=== PATIENT | male | born 1955 | race Caucasian/White ===

== ENCOUNTER 2018-07-13 05:27 | Inpatient (IN) | payer BC ==
--- NOTE | 2018-06-30 10:13 | HP ---
HISTORY AND PHYSICAL: DATE OF OFFICE VISIT: 06/30/18 DATE OF SURGERY: 07/13/18 SURGEON: Aleksandra Rodgers MD* (dictated by ROSANNE Badillo). PROCEDURE: Right total knee arthroplasty. CHIEF COMPLAINT: Right knee pain. HISTORY OF PRESENT ILLNESS: Mr. Harley is a 62-year-old gentleman with continued complaints of right knee pain. He has failed conservative treatment and elected to proceed with a right total knee arthroplasty. PAST MEDICAL HISTORY: Sleep apnea. PAST SURGICAL HISTORY: Right knee arthroscopy, bilateral carpal tunnel release , ganglion cyst removal, and palate surgery for sleep apnea. CURRENT MEDICATIONS: None. ALLERGIES: None. FAMILY HISTORY: Cancer. SOCIAL HISTORY: A 62-year-old gentleman who lives with his . He smokes a pack and a quarter a day of cigarettes and some occasional marijuana and drinks 7 to 8 beers per week. REVIEW OF SYSTEMS: A complete 14-point review of systems was reviewed with the patient. It was all negative and noncontributory. He denies history of DVT, PE , hepatitis, HIV or anesthesia problems. PHYSICAL EXAMINATION GENERAL: He is well developed, well nourished, in no acute distress. VITAL SIGNS: He stands 5 feet 7 inches tall, weighs 280 pounds. His blood pressure is 148/80. His heart rate is 70. HEENT: Normocephalic, atraumatic. NECK: Supple. No palpable lymph nodes. PULMONARY: The lungs are clear to auscultation bilaterally. CARDIAC: Regular rate and rhythm. Strong S1, S2. ABDOMEN: Soft, nontender, nondistended. NEUROLOGIC: He is alert and oriented x3. MUSCULOSKELETAL: Right lower extremities: The skin is intact. There are no open wounds or abrasions. Some moderate effusion of the right knee. Some tenderness over the medial and lateral joint line. Range of motion is 10 to 120 degrees of flexion. He has 2+ dorsalis pedis pulse. He is able to dorsiflex and plantarflex and has intact sensation. ASSESSMENT AND PLAN: Mr. Harley is a 62-year-old gentleman with end-stage osteoarthritis of the right knee. He has failed conservative treatment and elected to proceed with the right total knee arthroplasty. The surgery is scheduled for 07/13/[address] Rodgers discussed the risks and benefits of the surgery at today's visit and all of his questions were answered. He will follow up with Dr. Rodgers in 2 weeks after the surgery. ROSANNE BADILLO [id number]/CPS #: [id number] MTDD
[~2018-07-13 05:27] MED LIST: Buffered Lidocaine 1% SYRIN* 1 ML/SYRINGE INTRADERM ONE; Lactated Ringers 1000 ML Bag* 1,000 ML IV SCH; Tranexamic Acid 1,000 MG in NS 0.9% 50 ML* (outpatient use) IV SCH
--- OUTSIDE RECORDS SUMMARY | 2018-07-13 05:31 | XMS REPORT | Continuity of Care Document ---
:1955 External Reference #:[id number] Author Name Timmy Gabriella Care Team Providers Name Role Phone Pepito Lo PA-C Primary Care Physician Unavailable Payers Date Identification Numbers Payment Provider Subscriber Effective: 2015 Policy Number: [id number] BS Chelo Harley PayID: [id number] [address] [address] [place] [address] Effective: 2013 Policy Number: [id number] BS [employer]ets Valencia Harley Expires: 2015 PayID: [id number] [address] [address] [place] [address] Advance Directives Description No Information Available Problems Date Description Provider Status Onset: 04/30/2015 Localized, primary osteoarthritis Aleksandra Rodgers M.D. Active Onset: 10/31/2016 Transient altered mental status Yuliana Ross M.D. 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 ETOH Use Currently consumes alcohol 12/week ETOH Use consumes 1-2 beers per day Tobacco Use Start: Unknown Patient is a current 1 PPD x 47 yrs smoker, smokes every day Recreational Drug Use Sporadically uses Marijuana Smoking Status Reviewed: 06/30/18 Patient is a current 1 PPD x 47 yrs smoker, smokes every day Exercise Type/Frequency Exercises rarely Allergies, Adverse Reactions, Alerts Description No Known Drug Allergies Medications Medication Date Status Form Strength Qnty SIG Indications Ordering Provider No Active Active Unknown Medications 016 Ultracet Hx Tablets 37.5-325mg 30tabs 1-2 tabs Sommer 016 - by mouth Nur, M.D. every 016 4-6 hours as needed pain No Active Hx Unknown Medications 014 - 016 No Active Hx Unknown Medications 014 - 014 Ibuprofen 00/00/0 Hx Unknown 000 - 014 Aspirin 00/00/0 Hx Unknown 000 - 014 Medications Administered in Office Medication Date Status Form Strength Qnty SIG Indications Ordering Provider Depomedrol Administered Injection Sommer 40MG 019 Aziza Nur Depomedrol Administered Injection Aleksandra 40MG 017 Aziza Rodgers Depomedrol Administered Injection Aleksandra 40MG 016 Aziza Rodgers Immunizations Description No Information Available Vital Signs Date Vital Result Comment 06/30/2018 8:50am Height 67 inches 5'7" Weight 280.00 lb Heart Rate 70 /min BP Systolic 148 mmHg BP Diastolic 80 mmHg Body Temperature 97.0 F BMI (Body Mass Index) 43.8 kg/m2 04/14/2018 10:41am Height 67 inches 5'7" Weight 280.00 lb Heart Rate 68 /min BP Systolic Sitting 154 mmHg BP Diastolic Sitting 92 mmHg Pain Level 6 BMI (Body Mass Index) 43.8 kg/m2 04/09/2018 12:00pm Height 67 inches 5'7" Weight 280.00 lb Heart Rate 80 /min BP Systolic 124 mmHg BP Diastolic 68 mmHg BMI (Body Mass Index) 43.8 kg/m2 10/31/2016 10:09am Height 67 inches 5'7" Weight 270.00 lb Heart Rate 70 /min BP Systolic Sitting 120 mmHg BP Diastolic Sitting 72 mmHg Respiratory Rate 20 /min Pain Level 0 O2 % BldC Oximetry 95 % BMI (Body Mass Index) 42.3 kg/m2 2016 10:25am Height 67 inches 5'7" Weight 260.00 lb Heart Rate 63 /min BP Systolic 136 mmHg BP Diastolic 87 mmHg Pain Level 7 BMI (Body Mass Index) 40.7 kg/m2 09/13/2015 8:41am Height 67 inches 5'7" Weight 250.00 lb Body Temperature 97.2 F Pain Level 0 BMI (Body Mass Index) 39.2 kg/m2 08/27/2015 8:16am Height 67 inches 5'7" Weight 250.00 lb Body Temperature 97.6 F Pain Level 1 BMI (Body Mass Index) 39.2 kg/m2 08/08/2015 9:23am Height 67 inches 5'7" Weight 250.00 lb Heart Rate 73 /min BP Systolic 123 mmHg BP Diastolic 79 mmHg BMI (Body Mass Index) 39.2 kg/m2 06/25/2015 2:49pm Height 67 inches 5'7" Weight 250.00 lb BMI (Body Mass Index) 39.2 kg/m2 06/11/2015 1:45pm Height 67 inches 5'7" Weight 250.00 lb BMI (Body Mass Index) 39.2 kg/m2 04/30/2015 2:16pm Height 67 inches 5'7" Weight 250.00 lb Heart Rate 75 /min BP Systolic 155 mmHg BP Diastolic 81 mmHg BMI (Body Mass Index) 39.2 kg/m2 07/11/2013 10:34am Height 67 inches 5'7" Weight 250.00 lb Heart Rate 88 /min BMI (Body Mass Index) 39.2 kg/m2 06/10/2013 9:46am Height 67 inches 5'7" Weight 250.00 lb Heart Rate 76 /min BP Systolic 138 mmHg BP Diastolic 87 mmHg BMI (Body Mass Index) 39.2 kg/m2 05/23/2013 9:14am BP Systolic 138 mmHg BP Diastolic 88 mmHg 04/28/2013 11:05am Height 67 inches 5'7" Weight 250.00 lb Heart Rate 67 /min BP Systolic 138 mmHg BP Diastolic 82 mmHg BMI (Body Mass Index) 39.2 kg/m2 Results Test Date Facility Test Result H/L Range Note Laboratory test 08/17/2015 [facility] Surgical SEE RESULT 1 , [address] Pathology [place], [place] [id number] [phone] 1 [id number] 2 SEE RESULT BELOW Name: JOSE ALBERTO HARLEY : [address]: Sommer Nur MD Acct: [id number] Unit: [id number] AGE: 60 Location: [facility] Re08/17/15 SEX: M Status: REG SD SPEC: [id number] PRINCE: 08/17/15 [facility] DR: Sommer Nur MD REQ: [id number] RECD: 08/17/15-1138 STATUS: SOUT _ ORDERED: LEVEL III, LEVEL IV COMMENTS: [id number] FINAL DIAGNOSIS 1. Soft tissue, right thumb, excision: -- Ganglion cyst 2. Soft tissue, right wrist, excision: -- Ganglion cyst PRE-OPERATIVE DIAGNOSIS Ganglion right wrist, mass right thumb. GROSS DESCRIPTION 1. The specimen is received in formalin labeled, Right Thumb Mass, and consists of a 2.0 x 0.8 x 0.2 cm white rubbery to fibrous tissue fragment with adherent muscle and adipose tissue. The specimen is longitudinally bisected and entirely submitted in one cassette. 2. The specimen is received in formalin labeled, Right Wrist Ganglion, and consists of a 2.0 x 1.2 x up to 0.6 cm brito-pink rubbery to fibrous tissue fragment, which is trisected and entirely submitted in one cassette. Signed (signature on file) Amador White MD [id number] END OF REPORT * ML=Testing performed at Main Lab DEPARTMENT OF PATHOLOGY, [address] [place] [address] Amador White M.D. Director [facility] # [id number] Procedures Date Code Description Status 04/14/2018 47063 Inject Tendon Sheath Or Ligament Aponeurosis Eg Plantar Completed Fascia 11/04/2016 47580 EEG Recording Awake & Asleep Completed 2016 34894 Inject/Drain Joint/Bursa Major W/O US Completed 08/17/2015 10027 Excision Tendon Sheath Ganglion /Or Joint Capsule Hand Or Completed Finger 08/17/2015 21078 Excision Ganglion Wrist/ Dorsal Or Volar; Primary Completed 08/17/2015 02287 Excision Ganglion Wrist/ Dorsal Or Volar; Primary Completed 06/11/2015 58765 Inject/Drain Joint/Bursa Major W/O US Completed 05/31/2013 14867 Arthroscopy,Knee,Meniscectomy Medial Or Lateral Completed 05/31/2013 23848 Arthroscopy,Knee,Meniscectomy Medial Or Lateral Completed 04/28/2013 60151 Xray Knee 3 Views Completed Encounters Type Date Location Provider Dx Diagnosis Office Visit 04/14/2018 Orthopedic Sommer Nur M65.311 Trigger thumb, 10:30a [facility] right thumb Office Visit 04/09/2018 Orthopedic Aleksandra Rodgers, M25.561 Pain in right 11:15a [facility] knee M25.461 Effusion, right knee M17.11 Unilateral primary osteoarthritis, right knee Office Visit 10/31/2016 [facility]/V[facility] Celestin R40.4 Transient 10:15a [facility] Aziza Ross alteration of Street Contractor awareness Office Visit 08/08/2015 [facility] Sommer M67.431 Ganglion, right 8:30a Of Vikci Nur M.D. wrist M67.441 Ganglion, right hand Office Visit 06/25/2015 Orthopedic Aleksandra M17.11 Unilateral primary 2:30p [facility] Rodgers osteoarthritis, right C.MTeena knee Office Visit 06/11/2015 Orthopedic Aleksandra M25.561 Pain in right knee 1:45p [facility] Rodgers C.[facility].ATommie M17.11 Unilateral primary osteoarthritis, right knee Office Visit 04/30/2015 Orthopedic Aleksandra M17.11 Unilateral primary 2:15p [facility] Rodgers osteoarthritis, right [facility]. knee M25.461 Effusion, right knee M25.561 Pain in right knee Office Visit 04/28/2013 10:45a Orthopedic Aleksandra Rodgers, 719.06 Effusion [facility] Lower Leg 844.8 Sprains & Strains Knee & Leg Other Spec Sites Plan of Treatment Future Appointment(s):07/23/2018 8:45 am - Aleksandra Rodgers M.D. at [facility]07/13/2018 8:30 am - TOBY Mayorga at [facility]07/13/2018 8:30 am - ROSANNE [place] at [facility]07/13/2018 8:30 am - Aleksandra Rodgers M.D. at [facility]06/30/2018 - Aleksandra Rodgers M.D.M17.11 Unilateral primary osteoarthritis, right kneeFollow up:Follow up: 2 weeks after ezhvihoX92.461 Effusion, right kneeM25.561 Pain in right knee
--- OUTSIDE RECORDS SUMMARY | 2018-07-13 05:32 | XMS REPORT | Continuity of Care Document ---
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 Payers Date Identification Numbers Payment Provider Subscriber Effective: 2015 Policy Number: [id number] [facility] Harley PayID: [id number] [address] [address] [place] [address] Advance Directives Description No Information Available Problems Date Description Provider Status Onset: 05/29/2011 Mixed hyperlipidemia Sdira Garcia, RN MS Active NATIONAL RECRUITER Onset: 05/26/2013 Morbid obesity Melva Oliver MD Active Onset: 05/26/2013 Obstructive sleep apnea syndrome Melva Oliver MD Active Onset: 05/27/2013 Tobacco user Melva Oliver MD Active Onset: 12/31/2015 Laboratory test result abnormal Pepito Lo PA Active Note: hsCRP--- >6 Onset: 12/31/2015 Prostate specific antigen abnormal Pepito Lo PA Active Note: >4 Family History Date Family Member(s) Observation Comments Father Unknown Parents when patient was 6 months old Mother Alive And Well Number of Children None Number of Siblings Siblings: 4 All 1/2 siblings (same father). 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 Occupation Retired July 06, 2015 Tobacco Use Start: Unknown current cigarette smoker 1 pack daily X40 years ETOH Use Currently consumes alcohol Occas, beer, wine and alcohol Tobacco Use Start: Unknown Heavy tobacco smoker (more than 10 cigarettes/day) Smoking Status Reviewed: 06/16/18 Heavy tobacco smoker (more than 10 cigarettes/day) Allergies, Adverse Reactions, Alerts Description No Known Drug Allergies Medications Medication Date Status Form Strength Qnty SIG Indications Ordering Provider Nicotine 06/16/ Active Patches 21mg/24HR 84uni 1 patch F17.210 [facility], 2018 24HR ts daily Cynthia Joshua MD Shingrix 08/03/ Active Suspension 50mcg 1unit 1 Z00.01 [facility], 2017 Rec s injection Cynthia yaron Joshua MD directed Massage Therapy 02/03/ Active [facility] Cynthia florencia Joshua MD Azithromycin 05/13/ Hx Tablets 500mg 3tabs 1 by mouth J01.90 [facility], 2016 - every day Cynthia 05/16/ MD Tres 2016 Hydrocodone 05/13/ Hx Syrup 5-1.5mg/5M 200ml 1 tsp q J01.90 [facility] Bitartrate/Domenica 2017 - L 4-6hrs prn Cynthia tropine 05/20/ MD Tres Methylbromide 2016 No Active 01/27/ Hx Unknown Medications 2015 - 2015 Cephalexin 11/27/ Hx Tablets 500mg 30tab 1 by mouth S02.5xxB Jose, 2016 - s Three Sidra 01/27/ times a C, RN MS 2015 day NATIONAL RECRUITER Tamsulosin HCL 01/01/ Hx Capsules 0.4mg 30cap 1 by mouth N20.0 Olivier, 2014 - s every day Cynthia 11/27/ MD Tres 2016 Ondansetron 01/01/ Hx Tablets 4mg 30tab 1 by mouth N20.0 Olivier, 2015 - Dispers s twice a Cynthia 11/27/ day as MD Tres 2016 needed nausea No Active 11/27/ Hx Unknown Medications 2014 - 2014 Zithromax Z-Florentin 03/24/ Hx Tablets 250mg 1tabs take as Nisha 2011 - directed Last 01/03/ 2013 Keflex 07/08/ Hx Capsules 500mg 20cap 1 po qid 706.2 Nisha 2011 - s Last 03/24/ 2011 Amoxicillin 05/29/ Hx Tablets 875mg 28tab 1 po bid 461.0 Jose 2011 - s Sidra 04/04/ C, RN MS 2012 NATIONAL RECRUITER Hycotuss 05/29/ Hx Liquid 100mg;5mg/ 120ml 1 tsp ac 461.0 Jose, Expectorant 2011 - 5ML and hs Sidra 05/29/ C, RN MS 2011 NATIONAL RECRUITER Combivent 05/29/ Hx Aerosol 18-103mcg/ 1unit 2 puffs 461.0 Nisha, 2011 - Act s tid for Last, 05/26/ duration 2013 of cough Cheratussin ac 05/29/ Hx Syrup 100-10mg/5 120un 1 tsp ac 461.0 Jose, 2011 - ML its and hs Sidra 06/07/ C, RN MS 2011 NATIONAL RECRUITER Massage Therapy 10/01/ Hx DX: Degen Monthly as 715.09 Nisha, 2009 - Arthritis a medical Last, 11/27/ necessity 2015 Simvastatin 02/10/ Hx Tablets 20mg 30tab 1 PO qd 272.2 Nisha, 2007 - s Last, 10/01/ 2009 Chantix Starter 02/08/ Hx #1Pack 1unit as 305.1 Trabariel, Pack 2007 - s directed Last, 08/26/ 2007 Chantix 02/08/ Hx Tablets 1mg 60tab 1 bid with 305.1 Trabariel, 2006 - s increased Last, 01/03/ fluids 2013 Massage Therapy Hx DX: Degen Rx: 715.09 Nisha, 2005 - Arthritis Monthly Last, 03/21/ 2005 Motrin 02/04/ Hx Tablets 800mg 100ta 1 po tid 715.09 Nisha, 2005 - bs with food Last, 11/27/ prn pain 2014 724.5 Pravachol 07/09/2005 - Hx Tablets 40mg 30tabs 1 PO qd Nisha, 08/07/2006 MD Last Zithromax Z-Florentin 07/08/2004 - Hx Tablets 250mg 1Pak as Directed Dawson, 06/23/2005 Kendy N.PTommie Hycotuss 07/08/2004 - Hx Liquid 100mg;5mg 120ml 1 tsp ac and Dawson, Expectorant 05/29/2011 /5ML hs Knedy N.Ciara Nathaly D 07/08/2004 - Hx Tablets 60mg;120 20tabs 1 PO Q 12H [facility], 06/23/2005 mg Kendy, N.P. Medications Administered in Office Medication Date Status Form Strength Qnty SIG Indications Ordering Provider Depo Medrol 20 Administered Injection Trabout, MG 001 MD Last Immunizations CPT Code Status Date Vaccine Reaction Lot # [id number] Given 03/24/2012 Fluzone Trivalent Immunization [id number] Given 10/02/2005 Tetanus And Diptheria Toxoids For Adult NONE NOTED [id number] Use-preservative free Vital Signs Date Vital Result Comment 06/16/2018 9:22am Weight 286.12 lb Heart Rate 69 /min BP Systolic 119 mmHg BP Diastolic 64 mmHg Height 67 inches 5'7" BMI (Body Mass Index) 44.8 kg/m2 08/03/2017 10:32am Weight 279.00 lb Heart Rate 68 /min BP Systolic 123 mmHg BP Diastolic 74 mmHg Height 67 inches 5'7" BMI (Body Mass Index) 43.7 kg/m2 Urine Dipstick - Blood 1+ Urine Dipstick - Protein NEGATIVE Urine Dipstick - Glucose NEGATIVE Urine Dipstick - Leukocytes NEGATIVE 10/20/2016 10:22am Body Temperature 97.9 F Weight 268.12 lb Heart Rate 73 /min BP Systolic 120 mmHg BP Diastolic 73 mmHg Height 67 inches 5'7" BMI (Body Mass Index) 42.0 kg/m2 05/13/2016 9:26am Body Temperature 98.2 F Weight 272.25 lb Heart Rate 81 /min BP Systolic 133 mmHg BP Diastolic 76 mmHg Height 67 inches 5'7" BMI (Body Mass Index) 42.6 kg/m2 02/04/2016 11:54am Weight 269.25 lb Heart Rate 68 /min BP Systolic 126 mmHg BP Diastolic 80 mmHg Height 67 inches 5'7" BMI (Body Mass Index) 42.2 kg/m2 01/28/2016 11:10am Weight 268.00 lb Heart Rate 71 /min BP Systolic 127 mmHg BP Diastolic 71 mmHg Height 67 inches 5'7" BMI (Body Mass Index) 42.0 kg/m2 12/31/2015 8:23am Weight 270.25 lb Heart Rate 62 /min BP Systolic 140 mmHg BP Diastolic 75 mmHg Height 67 inches 5'7" BMI (Body Mass Index) 42.3 kg/m2 Urine Dipstick - Blood TRACE Urine Dipstick - Protein NEGATIVE Urine Dipstick - Glucose NEGATIVE Urine Dipstick - Leukocytes NEGATIVE 11/28/2015 1:33pm Body Temperature 98.2 F Weight 265.50 lb Heart Rate 78 /min BP Systolic 118 mmHg BP Diastolic 70 mmHg Height 67 inches 5'7" BMI (Body Mass Index) 41.6 kg/m2 01/01/2015 1:20pm Weight 261.00 lb Heart Rate 68 /min BP Systolic 118 mmHg BP Diastolic 68 mmHg Height 67 inches 5'7" BMI (Body Mass Index) 40.9 kg/m2 11/27/2014 9:22am Weight 258.25 lb Heart Rate 72 /min BP Systolic 127 mmHg BP Diastolic 72 mmHg Height 67 inches 5'7" BMI (Body Mass Index) 40.4 kg/m2 05/26/2013 9:41am Weight 270.00 lb Heart Rate 73 /min BP Systolic 150 mmHg BP Diastolic 89 mmHg Height 67 inches 5'7" BMI (Body Mass Index) 42.3 kg/m2 Urine Dipstick - Blood TRACE BLD And WBC Urine Dipstick - Protein NEGATIVE Urine Dipstick - Glucose NEGATIVE 01/03/2013 8:58am Weight 252.00 lb Heart Rate 68 /min BP Systolic 121 mmHg BP Diastolic 81 mmHg Height 67 inches 5'7" BMI (Body Mass Index) 39.5 kg/m2 Urine Dipstick - Blood TRACE WBC Urine Dipstick - Protein NEGATIVE Urine Dipstick - Glucose NEGATIVE 03/24/2012 1:32pm Weight 254.00 lb Heart Rate 71 /min BP Systolic 129 mmHg BP Diastolic 81 mmHg Height 67 inches 5'7" BMI (Body Mass Index) 39.8 kg/m2 Urine Dipstick - Blood NEGATIVE Urine Dipstick - Protein NEGATIVE Urine Dipstick - Glucose NEGATIVE 07/18/2011 10:59am Weight 252.00 lb Heart Rate 76 /min BP Systolic 109 mmHg BP Diastolic 72 mmHg 07/14/2011 11:16am Weight 256.00 lb Heart Rate 80 /min BP Systolic 121 mmHg BP Diastolic 78 mmHg 07/09/2011 1:24pm Weight 260.00 lb Heart Rate 82 /min BP Systolic 129 mmHg BP Diastolic 73 mmHg 07/07/2011 10:56am Weight 259.00 lb Heart Rate 72 /min BP Systolic 137 mmHg BP Diastolic 81 mmHg 05/29/2011 12:19pm Body Temperature 99.5 F Weight 244.00 lb Heart Rate 83 /min BP Systolic 107 mmHg BP Diastolic 67 mmHg 05/08/2010 2:56pm Weight 251.00 lb Heart Rate 75 /min BP Systolic 114 mmHg BP Diastolic 71 mmHg 05/01/2010 2:44pm Weight 253.00 lb Heart Rate 73 /min BP Systolic 115 mmHg BP Diastolic 71 mmHg 10/01/2009 11:09am Weight 243.00 lb Heart Rate 68 /min BP Systolic 125 mmHg BP Diastolic 79 mmHg Height 67 inches 5'7" BMI (Body Mass Index) 38.1 kg/m2 Urine Dipstick - Blood 1+ Urine Dipstick - Protein NEGATIVE Urine Dipstick - Glucose NEGATIVE 12/29/2008 11:10am Weight 247.00 lb Heart Rate 73 /min BP Systolic 119 mmHg BP Diastolic 75 mmHg 07/14/2008 10:08am Weight 254.00 lb Heart Rate 70 /min BP Systolic 109 mmHg BP Diastolic 69 mmHg Urine Dipstick - Blood 1+ Urine Dipstick - Protein NEGATIVE Urine Dipstick - Glucose NEGATIVE 01/31/2008 9:26am Weight 240.00 lb Heart Rate 79 /min BP Systolic 118 mmHg BP Diastolic 76 mmHg Height 5.7 inches 0'5.70" BMI (Body Mass Index) 5193.0 kg/m2 09/06/2007 11:56am Weight 238.00 lb Heart Rate 71 /min BP Systolic 112 mmHg BP Diastolic 71 mmHg Height 5.7 inches 0'5.70" BMI (Body Mass Index) 5149.7 kg/m2 08/27/2007 10:58am Weight 235.00 lb Heart Rate 72 /min BP Systolic 109 mmHg BP Diastolic 68 mmHg Height 5.7 inches 0'5.70" BMI (Body Mass Index) 5084.8 kg/m2 Urine Dipstick - Blood 1+ Urine Dipstick - Protein 1+ Urine Dipstick - Glucose NEGATIVE 02/08/2007 10:20am Weight 232.00 lb Heart Rate 75 /min BP Systolic 110 mmHg BP Diastolic 76 mmHg Height 5.7 inches 0'5.70" BMI (Body Mass Index) 5019.9 kg/m2 08/07/2006 11:07am Weight 236.00 lb Heart Rate 80 /min BP Systolic 130 mmHg BP Diastolic 68 mmHg Height 5.7 inches 0'5.70" BMI (Body Mass Index) 5106.4 kg/m2 Urine Dipstick - Blood 1+ Urine Dipstick - Protein NEGATIVE Urine Dipstick - Glucose NEGATIVE 02/04/2006 4:13pm Weight 240.00 lb Heart Rate 70 /min BP Systolic 142 mmHg BP Diastolic 66 mmHg Height 5.7 inches 0'5.70" BMI (Body Mass Index) 5193.0 kg/m2 10/15/2005 2:14pm Weight 238.00 lb Heart Rate 80 /min BP Systolic 102 mmHg BP Diastolic 58 mmHg Height 5.7 inches 0'5.70" BMI (Body Mass Index) 5149.7 kg/m2 10/02/2005 1:16pm Body Temperature 98.2 F Weight 233.00 lb Heart Rate 80 /min BP Systolic 120 mmHg BP Diastolic 66 mmHg Height 5.7 inches 0'5.70" BMI (Body Mass Index) 5041.5 kg/m2 07/09/2005 2:20pm Weight 235.00 lb Heart Rate 90 /min BP Systolic 106 mmHg BP Diastolic 60 mmHg Height 5.7 inches 0'5.70" BMI (Body Mass Index) 5084.8 kg/m2 06/23/2005 10:53am Weight 237.00 lb Heart Rate 84 /min BP Systolic 132 mmHg BP Diastolic 86 mmHg Height 5.7 inches 0'5.70" BMI (Body Mass Index) 5128.1 kg/m2 Results Test Date Facility Test Result H/L Range Note CBC with Auto Diff-fcmg 06/16/2018 [facility] 10.0 K/uL 4.1-11.0 RBC 5.21 M/uL 4.60-6.10 Hemoglobin 15.1 gm/dL 13.5-18.0 Hematocrit 46.2 % 41.0-53.0 MCV 88.7 fL 80.0-97.0 MCH 29.1 pg 27.0-32.0 MCHC 32.8 g/dL 32.0-36.0 RDW 14.3 % 11.5-14.5 PLT Count 227 K/ul 140-400 MPV 8.6 FL 7.1-10.7 Neutrophil 64.2 % 35.0-75.0 Lymphocyte 27.0 % 16.0-52.0 Monocyte 6.4 % 2.0-10.0 Eosinophil 1.8 % 0.0-5.0 Basophil 0.6 % 0.0-4.0 Abs Neutrophils 6.4 K/uL 2.1-8.0 Abs Lymphocytes 2.7 K/uL 0.8-5.5 Abs Monocytes 0.6 K/uL 0.1-1.0 Abs Eosinophils 0.2 K/uL 0.0-0.5 Abs Basophils 0.1 K/uL 0.0-0.3 Comprehensive Met Panel-[facility] 06/16/2018 [facility] Sodium 143 mmol/L 135- 146 1 Potassium 4.8 mmol/L 3.5-5.2 Chloride# 104 mmol/L 97-110 2 Carbon Dioxide 32 mmol/L 24-34 Glucose 131 mg/dL High 70-105 BUN 13 mg/dL 6-26 Creatinine 0.9 mg/dL 0.5-1.4 Calcium 9.5 mg/dL 8.5-10.2 Total Protein 6.5 g/dL 6.0-8.0 Albumin 4.1 g/dL 3.6-4.9 Globulin 2.4 g/dL 2.0-3.5 A/G Ratio 1.7 Ratio 1.0-2.2 Total Bilirubin 0.5 mg/dL 0.1-1.3 Alkaline Phosphatase 67 U/L 24-140 Alt 16 U/L 3-42 Ast 13 U/L 8-42 Anion Gap 7 mmol/L 5-15 3 [place] Egfr >60 >60 4 Non [place] Egfr >60 >60 5 Laboratory test finding 06/16/2018 [facility] Magnesium 2.2 mg/dL 1.5-2.7 Comprehensive Met Panel-[facility] 08/03/2017 [facility] Sodium 143 mmol/L 135- 146 6, 7 Potassium 4.7 mmol/L 3.5-5.2 Chloride# 103 mmol/L 97-110 8 Carbon Dioxide 30 mmol/L 24-34 Glucose 93 mg/dL 70-105 BUN 17 mg/dL 6-26 Creatinine 0.9 mg/dL 0.5-1.4 Calcium 9.6 mg/dL 8.5-10.2 Total Protein 6.5 g/dL 6.0-8.0 Albumin 4.3 g/dL 3.6-4.9 Globulin 2.2 g/dL 2.0-3.5 A/G Ratio 2.0 Ratio 1.0-2.2 Total Bilirubin 0.6 mg/dL 0.1-1.3 Alkaline Phosphatase 67 U/L 24-140 Alt 18 U/L 3-42 Ast 14 U/L 8-42 [place] Egfr >60 >60 9 Non [place] Egfr >60 >60 10 Anion Gap 10 mmol/L 5-15 11 Laboratory test finding 08/03/2017 [facility] CRP-High 9.80 mg/L 0.00-9.90 12 Lipid 08/03/2017 [facility] Cholesterol 212 mg/dL High 50-199 Triglycerides 147 mg/dL 30-200 HDL 48 mg/dL 13 Chol/ HDL Ratio 4.5 ratio 4.0-6.7 VLDL 29 mg/dL 2-29 LDL (Calc) 135 mg/dL High 2099 14 Laboratory test finding 08/03/2017 [facility] TSH 1.20 uIU/mL 0.35-4.94 PSA 3.230 ng/mL 0.000-4.000 15 Laboratory test 01/28/2016 [facility] SEE NOTE 16 finding Laboratory test 12/31/2015 [facility] PSA 4.080 ng/mL High 0.000-4. 17 finding 000 Lipid 12/31/2015 [facility] Cholesterol 206 mg/dL High 50-199 Triglycerides 196 mg/dL 30-200 HDL 42 mg/dL 18 Chol/ HDL Ratio 4.9 ratio 4.0-6.7 VLDL 39 mg/dL High 2-29 LDL (Calc) 125 mg/dL High -99 19 Hepatic Panel (LFT) 12/31/2015 [facility] Total Protein 6.9 g/dL 6.0-8.0 Albumin 4.1 g/dL 3.6-4.9 Total Bilirubin 0.6 mg/dL 0.1-1.3 Direct Bilirubin 0.1 mg/dL 0.0-0.4 Alkaline Phosphatase 61 U/L 24-140 Alt 17 U/L 3-42 Ast 13 U/L 8-42 Basic (BMP) 12/31/2015 [facility] Sodium 144 Results veri <SEE NOTE> High 134-142 20 mmol/L Potassium 5.2 mmol/L 3.5-5.2 Chloride 107 mmol/L 97-109 Carbon Dioxide 33 mmol/L 24-34 Glucose 119 mg/dL High 70-105 BUN 15 mg/dL 6-26 Creatinine 0.9 mg/dL 0.5-1.4 Calcium 9.5 mg/dL 8.5-10.2 Anion Gap 9 mmol/L 6-14 Non [place] Egfr >60 >60 21 [place] Egfr >60 >60 22 Laboratory test finding 12/31/2015 [facility] CRP-High 6.93 mg/L 0.00-9.90 23 Rout Urine W/ Micro -RL 01/01/2015 [facility] Color YELLOW Appearance CLEAR Spec Grav Urine 1.020 (1.003-1.030) PH Urine 5.5 (5.0-7.5) Leuk Esterase NEGATIVE (Neg) Nitrite Urine NEGATIVE (Neg) Protein Urine NEGATIVE (Neg) Glucose Urine NEGATIVE (Neg) Ketone Urine NEGATIVE (Neg) Urobilinogen 0.2 mg/dL (0-1.0) Bilirubin Urine NEGATIVE (Neg) Blood/HGB Urine NEGATIVE (Neg) Epithelial Cells NEGATIVE [HPF] (Neg) Hyaline Casts 0.3 [LPF] (0-5) Bacteria NEGATIVE [HPF] (Neg) Urine WBC 0.3 [HPF] (0-8) Urine RBC 1.4 [HPF] (0-3) 24 Laboratory test 01/01/2015 [facility] Urine Culture Microbiology res <SEE 25 finding NOTE> Laboratory test 11/27/2014 [facility] Urine Culture Microbiology res <SEE 26 finding NOTE> Urinalysis-RL 11/27/2014 [facility] Color YELLOW Appearance CLEAR Spec Grav Urine 1.026 (1.003-1.030) PH Urine 6.0 (5.0-7.5) Leuk Esterase NEGATIVE (Neg) Nitrite Urine NEGATIVE (Neg) Protein Urine NEGATIVE (Neg) Glucose Urine NEGATIVE (Neg) Ketone Urine NEGATIVE (Neg) Urobilinogen 0.2 mg/dL (0-1.0) Bilirubin Urine NEGATIVE (Neg) Blood/HGB Urine TRACE (Neg) Epithelial Cells NEGATIVE [HPF] (Neg) Hyaline Casts 2.4 [LPF] (0-5) Bacteria NEGATIVE [HPF] (Neg) Urine WBC 4.9 [HPF] (0-8) Urine RBC 2.9 [HPF] (0-3) 27 CBC With Auto Diff 11/27/2014 [facility] WBC 9.0 K/uL 4.1-11.0 RBC 5.13 M/uL 4.60-6.10 Hemoglobin 15.5 gm/dL 13.5-18.0 Hematocrit 46.8 % 41.0-53.0 MCV 91.2 fL 80.0-97.0 MCH 30.3 pg 27.0-32.0 MCHC 33.2 g/dL 32.0-36.0 RDW 13.4 % 11.5-14.5 PLT Count 238 K/ul 140-400 Neutrophil 57.6 % 35.0-75.0 Lymphocyte 31.6 % 16.0-52.0 Monocyte 7.5 % 2.0-10.0 Eosinophil 2.5 % 0.0-5.0 Basophil 0.8 % 0.0-4.0 Abs Neutrophils 5.2 K/uL 2.1-8.0 Abs Lymphocytes 2.8 K/uL 0.8-5.5 Abmon 0.7 K/uL 0.1-1.0 Abs Eosinophils 0.2 K/uL 0.0-0.5 Abs Basophils 0.1 K/uL 0.0-0.3 Comprehensive Metabolic (CMP) 11/27/2014 [facility] Sodium 138 mmol/L 134- 142 Potassium 4.5 mmol/L 3.5-5.2 Chloride 102 mmol/L 97-109 Carbon Dioxide 29 mmol/L 24-34 Glucose 106 mg/dL High 70-105 BUN 14 mg/dL 6-26 Creatinine 0.8 mg/dL 0.5-1.4 Calcium 8.9 mg/dL 8.5-10.2 Total Protein 6.7 g/dL 6.0-8.0 Albumin 4.1 g/dL 3.6-4.9 Globulin 2.6 g/dL 2.0-3.5 A/G Ratio 1.6 Ratio 1.0-2.2 Total Bilirubin 0.5 mg/dL 0.1-1.3 Alkaline Phosphatase 67 U/L 24-140 Alt 16 U/L 3-42 Ast 12 U/L 8-42 Anion Gap 12 mmol/L 6-14 [place] Egfr >60 >60 28 Non [place] Egfr >60 >60 29 Lipid 11/27/2014 [facility] Cholesterol 198 mg/dL 50-199 Triglycerides 190 mg/dL 30-200 HDL 38 mg/dL 29-71 30 Chol/ HDL Ratio 5.2 ratio 4.0-6.7 VLDL 38 mg/dL High 2-29 LDL (Calc) 122 mg/dL High 20-99 31 Laboratory test finding 11/27/2014 [facility] Vitamin B12 286 pg/mL 180- 914 TSH 0.94 uIU/mL 0.35-4.94 PSA 4.220 ng/mL High 0.000-4.000 32 Comprehensive Metabolic (CMP) 05/26/2013 [facility] Sodium 139 mmol/L 134- 142 33 Potassium 5.4 No visible h <SEE NOTE> mmol/L High 3.5-5.2 34 Chloride 103 mmol/L 97-109 Carbon Dioxide 30 mmol/L 24-34 Glucose 93 mg/dL 70-105 BUN 14 mg/dL 6-26 Creatinine 0.8 mg/dL 0.5-1.4 Calcium 9.2 mg/dL 8.5-10.2 Total Protein 6.7 g/dL 6.0-8.0 Albumin 4.2 g/dL 3.6-4.9 Globulin 2.5 g/dL 2.0-3.5 A/G Ratio 1.7 Ratio 1.0-2.2 Total Bilirubin 0.5 mg/dL 0.1-1.3 Alkaline Phosphatase 71 U/L 24-140 Alt 17 U/L 3-42 Ast 13 U/L 8-42 Anion Gap 11 mmol/L 6-14 [place] Egfr >60 >60 35 Non [place] Egfr >60 >60 36 CBC With Auto Diff 05/26/2013 [facility] WBC 8.7 K/uL 4.1-11.0 RBC 5.07 M/uL 4.60-6.10 Hemoglobin 15.1 gm/dL 13.5-18.0 Hematocrit 45.3 % 41.0-53.0 MCV 89.3 fL 80.0-97.0 MCH 29.8 pg 27.0-32.0 MCHC 33.3 g/dL 32.0-36.0 RDW 13.2 % 11.5-14.5 PLT Count 208 K/ul 140-400 Neutrophil 49.2 % 35.0-75.0 Lymphocyte 38.5 % 16.0-52.0 Monocyte 8.7 % 2.0-10.0 Eosinophil 2.9 % 0.0-5.0 Basophil 0.7 % 0.0-4.0 Abs Neutrophils 4.3 K/uL 2.1-8.0 Abs Lymphocytes 3.4 K/uL 0.8-5.5 Abmon 0.8 K/uL 0.1-1.0 Abs Eosinophils 0.3 K/uL 0.0-0.5 Abs Basophils 0.1 K/uL 0.0-0.3 Comprehensive Metabolic (CMP) 01/03/2013 [facility] Sodium 140 mmol/L 134- 142 Potassium 4.6 Testing perf <SEE NOTE> mmol/L 3.5-5.2 37 Chloride 104 mmol/L 97-109 Carbon Dioxide 33 mmol/L 24-34 Glucose 99 mg/dL 70-105 BUN 16 mg/dL 6-26 Creatinine 0.9 mg/dL 0.5-1.4 Calcium 9.6 mg/dL 8.5-10.2 Total Protein 7.0 g/dL 6.0-8.0 Albumin 4.4 g/dL 3.6-4.9 Globulin 2.6 g/dL 2.0-3.5 A/G Ratio 1.7 Ratio 1.0-2.2 Total Bilirubin 0.5 mg/dL 0.1-1.3 Alkaline Phosphatase 66 U/L 24-140 Alt 16 U/L 3-42 Ast 14 U/L 8-42 Anion Gap 8 mmol/L 6-14 [place] Egfr >60 >60 38 Non [place] Egfr >60 >60 39 CBC With Auto Diff 01/03/2013 [facility] WBC 9.0 K/uL 4.1-11.0 RBC 5.04 M/uL 4.60-6.10 Hemoglobin 15.4 gm/dL 13.5-18.0 Hematocrit 45.9 % 41.0-53.0 MCV 91.1 fL 80.0-97.0 MCH 30.6 pg 27.0-32.0 MCHC 33.6 g/dL 32.0-36.0 RDW 13.4 % 11.5-14.5 PLT Count 230 K/ul 140-400 Neutrophil 54.7 % 35.0-75.0 Lymphocyte 34.4 % 16.0-52.0 Monocyte 7.4 % 2.0-10.0 Eosinophil 2.3 % 0.0-5.0 Basophil 1.2 % 0.0-4.0 Abs Neutrophils 4.9 K/uL 2.1-8.0 Abs Lymphocytes 3.1 K/uL 0.8-5.5 Abmon 0.7 K/uL 0.1-1.0 Abs Eosinophils 0.2 K/uL 0.0-0.5 Abs Basophils 0.1 K/uL 0.0-0.3 Lipid 01/03/2013 [facility] Cholesterol 198 mg/dL 50-199 Triglycerides 155 mg/dL 30-200 HDL 46 mg/dL 29-71 40 Chol/ HDL Ratio 4.3 ratio 4.0-6.7 VLDL 31 mg/dL High 2-29 LDL (Calc) 121 mg/dL High 20-99 41 Laboratory test 01/03/2013 [facility] PSA 2.86 ng/mL 0.00-4.00 42 finding Laboratory test 03/24/2012 [facility] Urine Culture Microbiology res 43 finding <SEE NOTE> Urinalysis-RL 03/24/2012 [facility] Color YELLOW Appearance CLEAR Spec Grav Urine 1.022 (1.003-1.030) PH Urine 5.5 (5.0-7.5) Leuk Esterase NEGATIVE (Neg) Nitrite Urine NEGATIVE (Neg) Protein Urine NEGATIVE (Neg) Glucose Urine NEGATIVE (Neg) Ketone Urine NEGATIVE (Neg) Urobilinogen 1.0 mg/dL (0-1.0) Bilirubin Urine NEGATIVE (Neg) Blood/HGB Urine NEGATIVE (Neg) 44 Comprehensive Metabolic (CMP) 03/24/2012 [facility] Sodium 142 mmol/L 134- 142 Potassium 5.0 mmol/L 3.5-5.2 Chloride 104 mmol/L 97-109 Carbon Dioxide 33 mmol/L 24-34 Glucose 91 mg/dL 70-105 BUN 16 mg/dL 6-26 Creatinine 0.9 mg/dL 0.5-1.4 Calcium 9.9 mg/dL 8.5-10.2 Total Protein 6.8 g/dL 6.0-8.0 Albumin 4.4 g/dL 3.6-4.9 Globulin 2.4 g/dL 2.0-3.5 A/G Ratio 1.8 Ratio 1.0-2.2 Total Bilirubin 0.5 mg/dL 0.1-1.3 Alkaline Phosphatase 75 U/L 24-140 Alt 23 U/L 3-42 Ast 16 U/L 8-42 Anion Gap 10 mmol/L 6-14 [place] Egfr >60 >60 45 Non [place] Egfr >60 >60 46 CBC With Auto Diff 03/24/2012 [facility] WBC 9.2 K/uL 4.1-11.0 RBC 4.92 M/uL 4.60-6.10 Hemoglobin 15.1 gm/dL 13.5-18.0 Hematocrit 44.9 % 41.0-53.0 MCV 91.3 fL 80.0-97.0 MCH 30.7 pg 27.0-32.0 MCHC 33.6 g/dL 32.0-36.0 RDW 12.9 % 11.5-14.5 PLT Count 223 K/ul 140-400 Neutrophil 51.8 % 35.0-75.0 Lymphocyte 36.2 % 16.0-52.0 Monocyte 8.9 % 2.0-10.0 Eosinophil 2.3 % 0.0-5.0 Basophil 0.8 % 0.0-4.0 Abs Neutrophils 4.8 K/uL 2.1-8.0 Abs Lymphocytes 3.3 K/uL 0.8-5.5 Abs Monocytes 0.8 K/uL 0.1-1.0 Abs Eosinophils 0.2 K/uL 0.0-0.5 Abs Basophils 0.1 K/uL 0.0-0.3 Lipid 03/24/2012 [facility] Cholesterol 222 mg/dL High 50-199 Triglycerides 317 mg/dL High 30-200 HDL 47 mg/dL 29-71 47 Chol/ HDL Ratio 4.7 ratio 4.0-6.7 VLDL 63 mg/dL High 2-29 LDL (Calc) 112 mg/dL 20-129 48 Non HDL Cholesterol 175 mg/dL High 20-129 Laboratory test finding 03/24/2012 [facility] PSA 2.92 ng/mL 0.00-4.00 49 TSH 1.38 uIU/mL 0.34-5.60 Laboratory test 07/07/2011 [facility] SEE NOTE 50 finding [facility] test 05/01/2010 [facility] (Do not Use) Histology/Surgi (SEE NOTE) 51 finding [facility] [place] [address] [phone] CMP 10/01/2009 [facility] (Do not Use) Sodium 141 mmol/L 135-144 52 [facility] [place] [place] [address] [phone] Potassium 4.8 mmol/L 3.6-5.2 Chloride 109 mmol/L 97-110 Carbon Dioxide 27 mmol/L 23-32 Glucose 113 mg/dL High 70-105 BUN 16 mg/dL 6-22 Creatinine 0.8 mg/dL 0.5-1.3 BUN/CR 20 Ratio Calcium 9.5 mg/dL 8.6-10.2 Total Protein 7.2 g/dL 5.8-7.8 Albumin 4.1 g/dL 3.5-4.8 Globulin 3.1 g/dL 2.0-3.5 A/G Ratio 1.3 Ratio 1.0-2.2 Total Bilirubin 0.7 mg/dL 0.3-1.2 Alkaline Phosphatase 81 U/L 24-140 Alt 34 U/L 5-45 Ast 27 U/L 12-40 Anion Gap 10 mmol/L 8-16 GFR Calculation > 60 mL/min 60-175 53 GFR For > 60 mL/min 60-175 54 CBC With Auto Diff 10/01/2009 [facility] (Do not Use) WBC 6.7 K/ul 4.0- 10.9 [facility] [place] [address] [phone] RBC 5.10 M/ul 4.70-6.10 Hemoglobin 15.7 GM/dl 13.5-18.0 Hematocrit 45.8 % 42.0-52.0 MCV 89.7 FL 80.0-97.0 MCH 30.8 pg 27.0-31.0 MCHC 34.3 g/dL 32.0-36.0 RDW 12.9 % 11.5-14.5 Platelet Count 203 K/ul 140-440 Neutrophils 42.1 % Low 50-70 Lymphocytes 42.5 % 20-44 Monocytes 12.4 % High 2-9 Eosinophil 2.4 % 0-4 Basophil 0.6 % 0-2 Absolute Neutrophils 2.8 K/ul 2.05-7.63 Absolute Lymphocytes 2.8 K/ul 0.8-4.8 Absolute Monocytes 0.8 K/ul 0.1-1.0 Absolute Eosinophils 0.2 K/ul 0.1-0.5 Absolute Basophils 0.0 K/ul 0.0-0.3 Hematology Comment (Comm2) N/A Lipid Panel 10/01/2009 [facility] (Do not Use) Cholesterol 205 mg/dL High 50-199 [facility] [place] [address] [phone] Triglycerides 167 mg/dL High 10-150 HDL 42 mg/dL 29-71 55 Chol/HDL Ratio 4.9 Ratio 4.0-6.7 56 VLDL 33 mg/dL High 2-29 LDL (Calc) 130 mg/dL High 20-129 57 Laboratory test 10/01/2009 [facility] (Do not Use) PSA 2.04 ng/ml 0.00- 4.00 58 finding [facility] [place] [address] [phone] CMP 07/14/2008 [facility] (Do not Use) Sodium 142 mmol/L 135-144 [facility] [place] [address] [phone] Potassium 4.5 mmol/L 3.6-5.2 Chloride 103 mmol/L 97-110 Carbon Dioxide 29 mmol/L 23-33 Glucose 101 mg/dL 70-105 BUN 16 mg/dL 6-22 Creatinine 0.9 mg/dL 0.5-1.3 BUN/CR 18 Ratio 12.0-20.0 Calcium 9.5 mg/dL 8.6-10.2 Total Protein 7.1 g/dL 5.8-7.8 Albumin 3.8 g/dL 3.5-4.8 Globulin 3.3 g/dL 2.0-3.5 A/G Ratio 1.2 Ratio 1.0-2.2 Total Bilirubin 0.9 mg/dL 0.3-1.2 Alkaline Phosphatase 60 U/L 24-140 Alt 46 U/L High 4-45 Ast 24 U/L 12-40 Anion Gap 15 mmol/L 8-16 GFR Calculation > 60 mL/min 60-175 59 GFR For > 60 mL/min 60-175 60 Lipid Panel 07/14/2008 [facility] (Do not Use) Cholesterol 177 mg/dL 50 -199 61 [facility] [place] [address] [phone] Triglycerides 57 mg/dL 10-150 HDL 61 mg/dL 29-71 62 Chol/HDL Ratio 2.9 Ratio Low 4.0-6.7 63 VLDL 11 mg/dL 2-29 LDL (Calc) 105 mg/dL 20-129 64 CBC With Auto Diff 07/14/2008 [facility] (Do not Use) WBC 7.9 K/ul 4.0- 10.9 [facility] [place] [address] [phone] RBC 4.87 M/ul 4.70-6.10 Hemoglobin 14.4 GM/dl 13.5-18.0 Hematocrit 42.3 % 42.0-52.0 MCV 87.0 FL 80.0-97.0 MCH 29.6 pg 27.0-31.0 MCHC 34.1 g/dL 32.0-36.0 RDW 13.7 % 11.5-14.5 Platelet Count 214 K/ul 140-440 Neutrophils 44.0 % Low 50-70 Lymphocytes 44.8 % High 20-44 Monocytes 7.1 % 2-9 Eosinophil 3.5 % 0-4 Basophil 0.6 % 0-2 Absolute Neutrophils 3.5 K/ul 2.05-7.63 Absolute Lymphocytes 3.6 K/ul 0.8-4.8 Absolute Monocytes 0.6 K/ul 0.1-1.0 Absolute Eosinophils 0.3 K/ul 0.1-0.5 Absolute Basophils 0.0 K/ul 0.0-0.3 Hematology Comment (Comm2) N/A Laboratory test 07/14/2008 [facility] (Do not Use) PSA 1.61 ng/ml 0.00- 4.00 65 finding [facility] [place] [address] [phone] TSH 0.92 uIU/ml 0.34-5.60 CMP 01/31/2008 [facility] (Do not Use) Sodium 141 mmol/L 135-144 66 [facility] [address] [phone] Potassium 4.7 mmol/L 3.6-5.2 Chloride 106 mmol/L 97-110 Carbon Dioxide 26 mmol/L 23-33 Glucose 108 mg/dL High 70-105 BUN 18 mg/dL 6-22 Creatinine 0.8 mg/dL 0.5-1.3 BUN/CR 23 Ratio High 12.0-20.0 Calcium 9.6 mg/dL 8.6-10.2 Total Protein 6.8 g/dL 5.8-7.8 Albumin 4.1 g/dL 3.5-4.8 Globulin 2.7 g/dL 2.0-3.5 A/G Ratio 1.5 Ratio 1.0-2.2 Total Bilirubin 0.8 mg/dL 0.3-1.2 Alkaline Phosphatase 66 U/L 24-140 Alt 23 U/L 4-45 Ast 22 U/L 12-40 Anion Gap 14 mmol/L 8-16 GFR Calculation > 60 mL/min 67 GFR For > 60 mL/min 68 Lipid Panel 01/31/2008 [facility] (Do not Use) Cholesterol 239 mg/dL High 50-199 [facility] [place] [address] [phone] Triglycerides 126 mg/dL 10-150 HDL 52 mg/dL 29-71 69 Chol/HDL Ratio 4.6 Ratio 70 VLDL 25 mg/dL LDL (Calc) 162 mg/dL High 20-129 71 Laboratory test finding 01/31/2008 [facility] (Do not Use) CPK 124 U/L 49-397 [facility] [place] [address] [phone] Belia Screen Neg Rheumatoid Factor -Quant. RESULT LESS THAN <SEE NOTE> IU/mL 72 TSH 1.26 uIU/ml 0.34-5.60 Laboratory 01/31/2008 [facility] (Do not Use) Lyme Igm/Igg NEGATIVE ( Neg) 73, 74 test finding [facility] [address] [phone] CMP 08/27/2007 [facility] (Do not Use) Sodium 140 mmol/L 135-144 75 [facility] [place] [address] [phone] Potassium 5.0 mmol/L 3.6-5.2 Chloride 106 mmol/L 97-110 Carbon Dioxide 29 mmol/L 23-33 Glucose 101 mg/dL 70-105 BUN 14 mg/dL 6-22 Creatinine 0.8 mg/dL 0.5-1.3 BUN/CR 18 Ratio 12.0-20.0 Calcium 9.5 mg/dL 8.6-10.2 Total Protein 6.6 g/dL 5.8-7.8 Albumin 3.6 g/dL 3.5-4.8 Globulin 3.0 g/dL 2.0-3.5 A/G Ratio 1.2 Ratio 1.0-2.2 Total Bilirubin 0.7 mg/dL 0.3-1.2 Alkaline Phosphatase 49 U/L 24-140 Alt 19 U/L 4-45 Ast 14 U/L 12-40 Anion Gap 10 mmol/L 8-16 GFR Calculation > 60 mL/min 76 GFR For > 60 mL/min 77 Lipid Panel 08/27/2007 [facility] (Do not Use) Cholesterol 245 mg/dL High 50-199 [facility] [place], [place] [id number] [phone] Triglycerides 131 mg/dL 10-150 HDL 38 mg/dL 29-71 Chol/HDL Ratio 6.5 Ratio VLDL 26 mg/dL LDL (Calc) 181 mg/dL High 20-129 Laboratory test 08/27/2007 [facility] (Do not Use) PSA 2.43 ng/ml 0.00- 4.00 78 finding [facility] [place] [address] [phone] TSH 0.64 uIU/ml 0.34-5.60 Lipid Panel 02/08/2007 [facility] (Do not Use) Cholesterol 246 mg/dL High 50-199 [facility] [place] [address] [phone] Triglycerides 164 mg/dL High 10-150 HDL 42 mg/dL 29-71 Chol/HDL Ratio 5.9 Ratio VLDL 33 mg/dL LDL (Calc) 171 mg/dL High 20-129 Urinalysis -RL 08/07/2006 [facility] (Do not Use) Color -LA YELLOW [facility] [place] [address] [phone] Appearance -LA TURBID Specific [place] -LA 1.026 1.003-1.030 Leukocyte Esterase -LA NEGATIVE (Neg) Nitrite -LA NEGATIVE (Neg) PH Urine -LA 5.5 5.0-7.5 Protein Urine-LA NEGATIVE (Neg) Glucose Urine -LA NEGATIVE (Neg) Ketone Urine -LA NEGATIVE (Neg) Urobilinogen -LA NORMAL (Norm) Bilirubin Urine -LA NEGATIVE (Neg) Blood/HGB Urine-RL 1+ Abnormal (Neg) Urine Microscopic, 08/07/2006 [facility] (Do not Use) Urine WBC NONE SEEN (0-5) Only -RL [facility] [place] [address] [phone] Urine RBC -LA NONE SEEN /HPF (0-2) Amorphous 3+ /HPF CMP 08/07/2006 [facility] (Do not Use) Sodium 140 mmol/L 135-144 [facility] [place] [address] [phone] Potassium 5.5 mmol/L High 3.6-5.2 79 Chloride 104 mmol/L 97-110 Carbon Dioxide 30 mmol/L 23-33 Glucose 102 mg/dL 70-105 BUN 16 mg/dL 6-22 Creatinine 0.9 mg/dL 0.5-1.3 BUN/CR 18 Ratio 12.0-20.0 Calcium 9.6 mg/dL 8.6-10.2 80 Total Protein 6.9 g/dL 5.8-7.8 Albumin 4.2 g/dL 3.5-4.8 Globulin 2.7 g/dL 2.0-3.5 A/G Ratio 1.6 Ratio 1.0-2.2 Total Bilirubin 0.9 mg/dL 0.3-1.2 Alkaline Phosphatase 68 U/L 24-140 Alt 18 U/L 4-45 Ast 15 U/L 12-40 Anion Gap 12 mmol/L 8-16 GFR Calculation > 60 mL/min 81 GFR For > 60 mL/min 82 CBC With Auto Diff 08/07/2006 [facility] (Do not Use) WBC 7.5 K/ul 4.0- 10.9 [facility] [place] [address] [phone] RBC 5.12 M/ul 4.70-6.10 Hemoglobin 15.4 GM/dl 13.5-18.0 Hematocrit 44.8 % 42.0-52.0 MCV 87.6 FL 80.0-97.0 MCH 30.0 pg 27.0-31.0 MCHC 34.3 g/dL 32.0-36.0 RDW 12.2 % 11.5-14.5 Platelet Count 222 K/ul 140-440 Neutrophils 57.0 % 50-70 Lymphocytes 31.8 % 20-44 Monocytes 7.7 % 2-9 Eosinophil 2.5 % 0-4 Basophil 1.0 % 0-2 Absolute Neutrophils 4.2 K/ul 2.05-7.63 Absolute Lymphocytes 2.4 K/ul 0.8-4.8 Absolute Monocytes 0.6 K/ul 0.1-1.0 Absolute Eosinophils 0.2 K/ul 0.1-0.5 Absolute Basophils 0.1 K/ul 0.1-0.3 Lipid Panel 08/07/2006 [facility] (Do not Use) Cholesterol 226 mg/dL High 50-199 [facility] [place] [address] [phone] Triglycerides 106 mg/dL 10-150 HDL 48 mg/dL 29-71 Chol/HDL Ratio 4.7 Ratio VLDL 21 mg/dL LDL (Calc) 157 mg/dL High 20-129 Laboratory test 08/07/2006 [facility] (Do not Use) PSA 2.00 ng/ml 0.00- 4.00 83 finding [facility] [place], [place] [id number] [phone] Lipid TX Panel 02/04/2006 [facility] (Do not Use) Ast 19 U/L 12-40 [facility] [place] [place] [address] [phone] Alt 23 U/L 4-45 Cholesterol 191 mg/dL 50-199 Triglycerides 357 mg/dL High 10-150 HDL 50 mg/dL 29-71 LDL (Calc) 70 mg/dL 20-129 Chol/HDL Ratio 3.8 Ratio VLDL 71 mg/dL Laboratory test 02/04/2006 [facility] (Do not Use) Direct LDL 114 mg/dL 20-129 finding [facility] [place] [address] [phone] Lipid TX Panel 10/15/2005 [facility] (Do not Use) Ast 21 U/L 12-40 [facility] [place] [address] [phone] Alt 26 U/L 4-45 Cholesterol 188 mg/dL 50-199 Triglycerides 201 mg/dL High 10-150 HDL 45 mg/dL -71 LDL (Calc) 103 mg/dL 20-129 Chol/HDL Ratio 4.2 Ratio VLDL 40 mg/dL CMP 06/23/2005 [facility] (Do not Use) Sodium 144 mmol/L 135-144 [facility] [place], [place] [address] [phone] Potassium 5.4 mmol/L High 3.6-5.2 84 Chloride 103 mmol/L 97-110 Carbon Dioxide 29 mmol/L 23-33 Glucose 103 mg/dL 70-105 BUN 19 mg/dL 6-22 Creatinine 1.0 mg/dL 0.5-1.3 BUN/CR 19 Ratio 12.0-20.0 Calcium 10.0 mg/dL 8.6-10.2 85 Total Protein 7.3 g/dL 5.8-7.8 Albumin 4.5 g/dL 3.5-4.8 Globulin 2.8 g/dL 2.0-3.5 A/G Ratio 1.6 Ratio 1.0-2.2 Total Bilirubin 0.7 mg/dL 0.3-1.2 Alkaline Phosphatase 68 U/L 24-140 Alt 22 U/L 4-45 Ast 22 U/L 12-40 Anion Gap 17 mmol/L High 8-16 GFR White Male 83 GFR White Female 61 GFR Black Male 100 GFR Black Female 74 GFR Guidelines 0 86 Lipid Panel 06/23/2005 [facility] (Do not Use) Cholesterol 251 mg/dL High 50-199 [facility] [place] [address] [phone] Triglycerides 113 mg/dL 10-150 HDL 60 mg/dL 29-71 Chol/HDL Ratio 4.2 Ratio VLDL 23 mg/dL LDL (Calc) 168 mg/dL High 20-129 CBC 06/23/2005 [facility] (Do not Use) WBC 8.1 K/ul 4.0-10.9 [facility] [place] [address] [phone] RBC 5.03 M/ul 4.70-6.10 Hemoglobin 15.5 GM/dl 13.5-18.0 Hematocrit 44.2 % 42.0-52.0 MCV 87.8 FL 80.0-97.0 MCH 30.9 pg 27.0-31.0 MCHC 35.2 g/dL 32.0-36.0 RDW 12.3 % 11.5-14.5 Platelet Count 297 K/ul 140-440 Neutrophils 48.2 % Low 50-70 Lymphocytes 42.7 % 20-44 Monocytes 6.9 % 2-9 Eosinophil 2.1 % 0-4 Basophil 0.1 % 0-2 Absolute Neutrophils 3.8 K/ul 2.05-7.63 Absolute Lymphocytes 3.5 K/ul 0.8-4.8 Absolute Monocytes 0.6 K/ul 0.1-1.0 Absolute Eosinophils 0.2 K/ul 0.1-0.5 Absolute Basophils 0.0 K/ul Low 0.1-0.3 Laboratory test 06/23/2005 [facility] (Do not Use) PSA 1.87 ng/ml 0.00- 4.00 87 finding [facility] [place] [place] [address] [phone] Laboratory test 05/03/2004 [facility] (Do not Use) PSA 1.77 ng/ml 0.00- 4.00 88 finding [facility] [place] [address] [phone] Lipid Panel 05/03/2004 [facility] (Do not Use) Cholesterol 215 mg/dL High 50-199 [facility] [place], [place] [id number] [phone] Triglycerides 81 mg/dL 30-200 HDL 49 mg/dL 29-71 Chol/HDL Ratio 4.4 Ratio VLDL 16 mg/dL LDL (Calc) 150 mg/dL High 20-129 CMP 05/03/2004 [facility] (Do not Use) Sodium 144 mmol/L 135-145 [facility] [place] [address] [phone] Potassium 4.9 mmol/L 3.4-5.3 Chloride 108 mmol/L 98-111 Carbon Dioxide 29 mmol/L 22-33 Glucose 95 mg/dL 70-105 BUN 15 mg/dL 6-26 Creatinine 0.9 mg/dL 0.5-1.5 BUN/CR 17 Ratio 12.0-20.0 Calcium 8.8 mg/dL 8.6-10.3 Total Protein 7.1 g/dL 6.2-8.3 Albumin 4.2 g/dL 3.5-5.0 Globulin 2.9 g/dL 2.7-4.3 A/G Ratio 1.5 Ratio 1.0-2.2 Total Bilirubin 0.7 mg/dL 0.1-1.3 Ast 15 U/L 8-42 Alt 18 U/L 3-42 Alkaline Phosphatase 70 U/L 24-108 Anion Gap 12 mmol/L 10-20 Lipid Panel 04/10/2003 [facility] (Do not Use) Cholesterol 251 mg/dL High 50-199 [facility] [place] [address] [phone] Triglycerides 149 mg/dL 30-200 HDL 45 mg/dL 29-71 Chol/HDL Ratio 5.6 Ratio VLDL 30 mg/dL LDL (Calc) 176 mg/dL High 20-129 CMP 04/10/2003 [facility] (Do not Use) Sodium 142 mmol/L 135-145 [facility] [place], [place] [id number] [phone] Potassium 4.4 mmol/L 3.4-5.3 Chloride 103 mmol/L 98-111 Carbon Dioxide 27 mmol/L 22-33 Glucose 96 mg/dL 70-105 BUN 17 mg/dL 6-26 Creatinine 0.9 mg/dL 0.5-1.5 BUN/CR 19 Ratio 12.0-20.0 Calcium 9.5 mg/dL 8.6-10.3 Total Protein 7.7 g/dL 6.2-8.3 Albumin 4.4 g/dL 3.5-5.0 Globulin 3.3 g/dL 2.7-4.3 A/G Ratio 1.3 Ratio 1.0-2.2 Total Bilirubin 0.8 mg/dL 0.1-1.3 Ast 18 U/L 8-42 Alt 20 U/L 3-42 Alkaline Phosphatase 67 U/L 24-108 Anion Gap 16 mmol/L 10-20 Laboratory test 04/10/2003 [facility] (Do not Use) PSA 1.70 ng/ml 0.00- 4.00 89 finding [facility] [place] [address] [phone] CBC 04/10/2003 [facility] (Do not Use) WBC 8.8 K/ul 4.1-10.9 [facility] [place] [address] [phone] RBC 5.32 M/ul 4.20-6.30 Hemoglobin 16.0 GM/dl 12.0-16.0 Hematocrit 47.7 % 37.0-51.0 MCV 89.7 FL 80.0-97.0 MCH 30.0 pg 26.0-32.0 MCHC 33.5 g/dL 31.0-36.0 RDW 12.0 % 11.5-14.5 Platelet Count 279 K/ul 140-440 Neutrophils 57.9 % 50-70 Lymphocytes 33.3 % 20-44 Monocytes 6.7 % 2-9 Eosinophil 2.0 % 0-4 Basophil 0.1 % 0-2 Absolute Neutrophils 5.1 K/ul 2.05-7.63 Absolute Lymphocytes 2.9 K/ul 0.8-4.8 Absolute Monocytes 0.6 K/ul 0.1-1.0 Absolute Eosinophils 0.2 K/ul 0.1-0.5 Absolute Basophils 0.0 K/ul Low 0.1-0.3 CMP 02/09/2002 [facility] (Do not Use) Sodium 140 mmol/L 135-145 [facility] [place] [address] [phone] Potassium 4.6 mmol/L 3.6-5.0 Chloride 104 mmol/L 98-107 Carbon Dioxide 30 mmol/L 21-31 Glucose 93 mg/dL 70-105 BUN 13 mg/dL 7-18 Creatinine 1.0 mg/dL 0.6-1.3 BUN/CR 13 Ratio 12.0-20.0 Calcium 9.5 mg/dL 8.4-10.2 Albumin 4.1 g/dL 3.5-5.0 Globulin 3.3 g/dL 2.7-4.3 A/G Ratio 1.2 Ratio 1.0-2.2 Total Bilirubin 0.9 mg/dL 0.2-1.0 Ast 14 U/L 10-42 Alt 17 U/L 10-40 Alkaline Phosphatase 71 U/L 32-92 Lipid Panel 02/09/2002 [facility] (Do not Use) Cholesterol 219 mg/dL High 50-199 [place] [address] [phone] Triglycerides 181 mg/dL 30-249 HDL 48 mg/dL 29-71 Chol/HDL Ratio 4.6 Ratio VLDL 36 mg/dL LDL (Calc) 135 mg/dL High 20-129 Laboratory test 02/09/2002 [facility] (Do not Use) PSA 1.93 ng/ml 0.00- 4.00 90 [place] [address] [phone] CBC 02/09/2002 [facility] (Do not Use) WBC 8.3 K/ul 4.1-10.9 [place] [address] [phone] RBC 5.10 M/ul 4.2-6.3 Hemoglobin 15.1 GM/dl 12.0-16.0 Hematocrit 45.7 % 37.0-51.0 MCV 89.7 FL 80-97 MCH 29.6 pg 26.0-32.0 MCHC 33.0 g/dL 31.0-36.0 RDW 12.1 % 11.5-14.5 Platelet Count 284 K/ul 140-440 Neutrophils 52.5 % 50-70 Lymphocytes 36.5 % 20-44 Monocytes 7.1 % 2-9 Eosinophil 3.0 % 0-4 Basophil 0.9 % 0-2 Absolute Neutrophils 4.4 K/ul 2.05-7.63 Absolute Lymphocytes 3.0 K/ul 0.8-4.8 Absolute Monocytes 0.6 K/ul 0.1-1.0 Absolute Eosinophils 0.2 K/ul 0.1-0.5 Absolute Basophils 0.1 K/ul 0.1-0.3 1 Updated reference range on new analyzer 2 Updated reference range on new analyzer 3 Updated Reference Range 4 Concerning GFR Guidelines for Americans: Normal function or mild renal disease, if clinically at risk: >/=60 mL/min Moderately decreased: 30-59 Severely decreased: 15-29 Renal failure: <15 5 Concerning GFR Guidelines: Normal function or mild renal disease, if clinically at risk: >/=60 mL/min Moderately decreased: 30-59 Severely decreased: 15-29 Renal failure: <15 Glomerular Filtration Rate (GFR) is estimated based on the MDRD equation, which assumes a steady state for creatinine as recommended by the National Kidney Disease Education Program in conjunction with the National Institutes of Health and the National Kidney Foundation. Clinical conditions in which it may be necessary to measure GFR by using clearance methods include extremes of age and body size, severe malnutrition or obesity, diseases of skeletal muscle, paraplegia or quadriplegia, vegetarian diet, rapidly changing kidney function, and calculation of the dose of potentially toxic drugs that are excreted by the kidneys. 6 This sample is drawn by:[facility]. 7 Updated reference range on new analyzer 8 Updated reference range on new analyzer 9 Concerning GFR Guidelines for Americans: Normal function or mild renal disease, if clinically at risk: >/=60 mL/min Moderately decreased: 30-59 Severely decreased: 15-29 Renal failure: <15 10 Concerning GFR Guidelines: Normal function or mild renal disease, if clinically at risk: >/=60 mL/min Moderately decreased: 30-59 Severely decreased: 15-29 Renal failure: <15 Glomerular Filtration Rate (GFR) is estimated based on the MDRD equation, which assumes a steady state for creatinine as recommended by the National Kidney Disease Education Program in conjunction with the National Institutes of Health and the National Kidney Foundation. Clinical conditions in which it may be necessary to measure GFR by using clearance methods include extremes of age and body size, severe malnutrition or obesity, diseases of skeletal muscle, paraplegia or quadriplegia, vegetarian diet, rapidly changing kidney function, and calculation of the dose of potentially toxic drugs that are excreted by the kidneys. 11 Updated Reference Range -2017 12 Recommended Cardiac Risk Assessment: Low < 1.0 mg/L Average 1.0 - 3.0 mg/L High > 3.0 mg/L 13 Per NCEP ATP III Guidelines: Results lower than 40 mg/dL are suggestive of increased risk for coronary artery disease. Results > or=to 60 mg/dL are considered a negative risk factor. 14 Per NCEP ATP III Guidelines: Normal Population <130 Patients with medical conditions: CHD/DM Optimal: <100 Borderline high: 130-159 High: 160-189 Very high: >189 15 Beginning 06/01/06 PSA values assayed at [facility] uses chemiluminescence methodology manufactured by [employer] for use on the DXI analyzer. Values obtained with different assay methods or kits can not be used interchangeably. Serum PSA measurement is not an absolute test for malignancy. The PSA value should be used in conjunction with information available from clinical evaluation and other diagnostic procedures. 16 Laboratory [place] [address] Surgical Pathology Report Specimen(s) Received A: Left posterior shoulder Clinical Diagnosis and History Left posterior shoulder lesion. Color to lesion was A black/purple until blood supply cut on excision and then became colorless. Stitch quezada most superior corner. Skin is one sample and fascia is second. Gross Description Specimen received in formalin labeled "left shoulder lesion and facia" is a 2.8 x 1.3 cm ellipse of brito skin excised to a maximum depth of 0.5 cm. There is a stitch on one longitudinal end indicating superior. The stitch will be redesignated as 12:00. The skin surface displays a focal 0.3 cm pink-adan area laying adjacent to a hypopigmented area measuring up to 0.2 cm. These areas are located within 0.3 cm of the nearest transverse margin. No other lesions are identified. This specimen is inked as follows: 3:00 transverse margin blue and 9:00 margin black. Also received in the same container is a 2.1 x 1.4 x 0.4 cm elliptical oriented portion of fibrofatty tissue. There is a suture on one end indicating superior corner. The suture will be redesignated as 12:00. Additionally of note, one of the surfaces has a hemorrhagic appearance which is cauterized. This surface could represent the old resection margin. The opposing surface is more glistening and yellow-brito and appears to represent the true deep margin of resection. The old marginal surface is inked green, the new 3:00 marginal half of the specimen is inked blue, and the 9:00 half of the specimen is inked black. The specimens are sectioned and sections are submitted for microscopic examination as designated: cassettes 1-4 first described skin ellipse with 12:00 cruciated end in cassette 1, transverse sections to include 3:00, 9:00 and deep margins submitted sequentially from 12:00 to 6:00 in cassettes 2-3 respectively, and cassette 4 6:00 cruciated end; cassettes 5-7 second received specimen with 12:00 cruciated end in cassette 5, transverse sections to include 3:00, 9:00 and deep margin in cassette 6, and cassette 7 to include 6:00 cruciated end. (7 blocks) jmd rff/rce Microscopic Description Sections of skin reveal intact thin epidermis without inflammation or disruption. The underlying dermis shows vessels with a moderate superficial perivascular inflammatory infiltrate composed mainly of lymphocytes with occasional histiocytes and rare eosinophils. Focal inflammation also surrounds adnexa. No vasculitis vis identified. Focal pigment laden macrophages are noted. No neoplastic process is identified. Mild solar elastosis noted. The findings are non-specific and is could represent a variety of etiologies including an arthropod bite reaction, allergic, or drug reaction. Suggest clinical correlation. Diagnosis SKIN, LEFT SHOULDER BENIGN SKIN WITH SUPERFICIAL PERIVASCULAR DERMATITIS AND MILD SOLAR ELASTOSIS. SEPARATE FRAGMENT OF BENIGN FIBROFATTY CONNECTIVE TISSUE. Technical component processed at [facility], Histopathology, [address] [place] [address], [id number]. Diagnosis and reporting performed at [facility], [address] [place] [address]. As applicable, positive and negative controls for all immunohistochemical and/or special stains were reviewed and considered appropriate. Reported: 01/30/2016 17:43 Electronically Signed Out By Ursula Whittington M.D. emg This report may include one or more immunohistochemical or in-situ hybridization results. Testing has been developed and the performance characteristics were determined by [email or web address] as required by CLIA '88 regulations. The tests may not have been approved for a given specific use by the [place] Food and Drug Administration, but the FDA has determined that such approval is not necessary for clinical use. Unless otherwise specified, testing performed by [facility] [place] [address] 17 Beginning 06/01/06 PSA values assayed at [facility] uses chemiluminescence methodology manufactured by [employer] for use on the DXI analyzer. Values obtained with different assay methods or kits can not be used interchangeably. Serum PSA measurement is not an absolute test for malignancy. The PSA value should be used in conjunction with information available from clinical evaluation and other diagnostic procedures. 18 Per NCEP ATP III Guidelines: Results lower than 40 mg/dL are suggestive of increased risk for coronary artery disease. Results > or=to 60 mg/dL are considered a negative risk factor. 19 Per NCEP ATP III Guidelines: Normal Population <130 Patients with medical conditions: CHD/DM Optimal: <100 Borderline high: 130-159 High: 160-189 Very high: >189 20 144 Results verified by repeat analysis 21 Concerning GFR Guidelines: Normal function or mild renal disease, if clinically at risk: >/=60 mL/min Moderately decreased: 30-59 Severely decreased: 15-29 Renal failure: <15 Glomerular Filtration Rate (GFR) is estimated based on the MDRD equation, which assumes a steady state for creatinine as recommended by the National Kidney Disease Education Program in conjunction with the National Institutes of Health and the National Kidney Foundation. Clinical conditions in which it may be necessary to measure GFR by using clearance methods include extremes of age and body size, severe malnutrition or obesity, diseases of skeletal muscle, paraplegia or quadriplegia, vegetarian diet, rapidly changing kidney function, and calculation of the dose of potentially toxic drugs that are excreted by the kidneys. 22 Concerning GFR Guidelines for Americans: Normal function or mild renal disease, if clinically at risk: >/=60 mL/min Moderately decreased: 30-59 Severely decreased: 15-29 Renal failure: <15 23 Recommended Cardiac Risk Assessment: Low < 1.0 mg/L Average 1.0 - 3.0 mg/L High > 3.0 mg/L 24 Unless otherwise specified, testing performed by [facility] [place] [address] 25 Microbiology results SOURCE URINE FINAL RESULT No growth 26 Microbiology results SOURCE URINE FINAL RESULT No growth 27 Unless otherwise specified, testing performed by [facility] [place] [address] [place] [id number] 28 Concerning GFR Guidelines for Americans: Normal function or mild renal disease, if clinically at risk: >/=60 mL/min Moderately decreased: 30-59 Severely decreased: 15-29 Renal failure: <15 29 Concerning GFR Guidelines: Normal function or mild renal disease, if clinically at risk: >/=60 mL/min Moderately decreased: 30-59 Severely decreased: 15-29 Renal failure: <15 Glomerular Filtration Rate (GFR) is estimated based on the MDRD equation, which assumes a steady state for creatinine as recommended by the National Kidney Disease Education Program in conjunction with the National Institutes of Health and the National Kidney Foundation. Clinical conditions in which it may be necessary to measure GFR by using clearance methods include extremes of age and body size, severe malnutrition or obesity, diseases of skeletal muscle, paraplegia or quadriplegia, vegetarian diet, rapidly changing kidney function, and calculation of the dose of potentially toxic drugs that are excreted by the kidneys. 30 Per NCEP ATP III Guidelines: Results lower than 40 mg/dL are suggestive of increased risk for coronary artery disease. Results > or=to 60 mg/dL are considered a negative risk factor. 31 Per NCEP ATP III Guidelines: Normal Population <130 Patients with medical conditions: CHD/DM Optimal: <100 Borderline high: 130-159 High: 160-189 Very high: >189 32 Beginning 06/01/06 PSA values assayed at [facility] uses an EIA methodology manufactured by [employer] for use on the DXI analyzer. Values obtained with different assay methods or kits can not be used interchangeably. Serum PSA measurement is not an absolute test for malignancy. The PSA value should be used in conjunction with information available from clinical evaluation and other diagnostic procedures. 33 This sample is drawn by:CT 34 5.4 No visible hemolysis. 35 Concerning GFR Guidelines for Americans: Normal function or mild renal disease, if clinically at risk: >/=60 mL/min Moderately decreased: 30-59 Severely decreased: 15-29 Renal failure: <15 36 Concerning GFR Guidelines: Normal function or mild renal disease, if clinically at risk: >/=60 mL/min Moderately decreased: 30-59 Severely decreased: 15-29 Renal failure: <15 Glomerular Filtration Rate (GFR) is estimated based on the MDRD equation, which assumes a steady state for creatinine as recommended by the National Kidney Disease Education Program in conjunction with the National Institutes of Health and the National Kidney Foundation. Clinical conditions in which it may be necessary to measure GFR by using clearance methods include extremes of age and body size, severe malnutrition or obesity, diseases of skeletal muscle, paraplegia or quadriplegia, vegetarian diet, rapidly changing kidney function, and calculation of the dose of potentially toxic drugs that are excreted by the kidneys. 37 4.6 Testing performed on an aliquot tube. 38 Concerning GFR Guidelines for Americans: Normal function or mild renal disease, if clinically at risk: >/=60 mL/min Moderately decreased: 30-59 Severely decreased: 15-29 Renal failure: <15 39 Concerning GFR Guidelines: Normal function or mild renal disease, if clinically at risk: >/=60 mL/min Moderately decreased: 30-59 Severely decreased: 15-29 Renal failure: <15 Glomerular Filtration Rate (GFR) is estimated based on the MDRD equation, which assumes a steady state for creatinine as recommended by the National Kidney Disease Education Program in conjunction with the National Institutes of Health and the National Kidney Foundation. Clinical conditions in which it may be necessary to measure GFR by using clearance methods include extremes of age and body size, severe malnutrition or obesity, diseases of skeletal muscle, paraplegia or quadriplegia, vegetarian diet, rapidly changing kidney function, and calculation of the dose of potentially toxic drugs that are excreted by the kidneys. 40 Per NCEP ATP III Guidelines: Results lower than 40 mg/dL are suggestive of increased risk for coronary artery disease. Results > or=to 60 mg/dL are considered a negative risk factor. 41 Per NCEP ATP III Guidelines: Normal Population <130 Patients with medical conditions: CHD/DM Optimal: <100 Borderline high: 130-159 High: 160-189 Very high: >189 42 Beginning 06/01/06 PSA values assayed at [facility] uses an EIA methodology manufactured by [employer] for use on the DXI analyzer. Values obtained with different assay methods or kits can not be used interchangeably. Serum PSA measurement is not an absolute test for malignancy. The PSA value should be used in conjunction with information available from clinical evaluation and other diagnostic procedures. 43 Microbiology results SOURCE URINE FINAL RESULT No growth 44 Unless otherwise specified, testing performed by [facility], [address] [address] 45 Concerning GFR Guidelines for Americans: Normal function or mild renal disease, if clinically at risk: >/=60 mL/min Moderately decreased: 30-59 Severely decreased: 15-29 Renal failure: <15 46 Concerning GFR Guidelines: Normal function or mild renal disease, if clinically at risk: >/=60 mL/min Moderately decreased: 30-59 Severely decreased: 15-29 Renal failure: <15 Glomerular Filtration Rate (GFR) is estimated based on the MDRD equation, which assumes a steady state for creatinine as recommended by the National Kidney Disease Education Program in conjunction with the National Institutes of Health and the National Kidney Foundation. Clinical conditions in which it may be necessary to measure GFR by using clearance methods include extremes of age and body size, severe malnutrition or obesity, diseases of skeletal muscle, paraplegia or quadriplegia, vegetarian diet, rapidly changing kidney function, and calculation of the dose of potentially toxic drugs that are excreted by the kidneys. 47 Per NCEP ATP III Guidelines: Results lower than 40 mg/dL are suggestive of increased risk for coronary artery disease. Results > or=to 60 mg/dL are considered a negative risk factor. 48 Per NCEP ATP III Guidelines: Optimal: <100 Near optimal: 100-129 Borderline high: 130-159 High: 160-189 Very high: >189 49 Beginning 06/01/06 PSA values assayed at [facility] uses an EIA methodology manufactured by [employer] for use on the DXI analyzer. Values obtained with different assay methods or kits can not be used interchangeably. Serum PSA measurement is not an absolute test for malignancy. The PSA value should be used in conjunction with information available from clinical evaluation and other diagnostic procedures. 50 [facility] [place] [id number] Surgical Pathology Report Specimen(s) Received A: Right shoulder blade area Clinical Diagnosis and History Gross Description Specimen received in formalin labeled with the patient's name are two irregular, partly fragmented pieces of yellow brito to adan white, fibrous soft tissue. The pieces measure 1.5 x 1.0 x 0.5 cm and 2.5 x 1.5 x 1.0 cm. The larger piece has a partly disrupted, 1.7 x 1.2 x 1.0 cm white cyst with chalky, friable material. Cardroom Attendant sections are submitted in one cassette. (The measurements of the specimen(s) may be less than those in vivo due to tissue shrinkage during histologic fixation and processing.) paw dme/jrf Diagnosis SKIN, RIGHT SHOULDER BLADE AREA: Disrupted epidermal inclusion cyst filled with keratinous debris. Focal surrounding fibrosis and chronic inflammation is noted, suggestive of prior rupture. Technical component processed at [facility], Histopathology, [address] [place] [address], [id number]. Diagnosis and reporting performed at [facility], [address] [place] [address]. Reported: 07/09/2011 13:23 Electronically Signed Out By Truong Mayfield M.D. paw ICD9 Codes 706.2 Unless otherwise specified, testing performed by [facility] [address] [place] [address] [address] [place] [address] Surgical Pathology Report Specimen(s) Received A: Shoulder blade Clinical Diagnosis and History Gross Description Specimen received in formalin labeled with the patient's name is a 1.8 x 1 x 1 cm rubbery piece of yellow brito to adan white fibrofatty tissue. There is a 0.4 x 0.2 cm overlying, possible skin fragment. The specimen is inked. On sectioning, there is a 0.4 x 0.2 x 0.1 cm possible cyst-like area. The remaining parenchyma is rubbery to firm, white brito. Totally submitted in two cassettes. (The measurements of the specimen(s) may be less than those in vivo due to tissue shrinkage during histologic fixation and processing.) [facility] dme/jrf Diagnosis SKIN AND SUBCUTANEOUS TISSUE, SHOULDER BLADE: Small epidermal inclusion cyst. Multiple levels examined. Technical component processed at [facility], Histopathology, [address] [place] [address], [id number]. Diagnosis and reporting performed at [facility], [address] [place] [id number]. Reported: 05/06/2010 11:17 Electronically Signed Out By Truong Mayfield M.D. paw ICD9 Codes 706.2 Unless otherwise specified, testing performed by [facility] [address] [place] [id number] 52 FASTING This sample is drawn by:CT 53 Concerning GFR GUIDELINES: Normal Function or Mild Renal Disease, if clinically at risk: >/=60mL/min Moderately decreased: 30-59 Severely decreased: 15-29 Renal Failure: <15 Glomerular Filtration Rate (GFR) is estimated based on the MDRD equation, which assumes a steady state for creatinine as recommended by the National Kidney Disease Education Program in conjunction with the National Institutes of Health and the National Kidney Foundation. Clinical conditions in which it may be necessary to measure GFR by using clearance methods include extremes of age and body size, severe malnutrition or obesity, diseases of skeletal muscle, paraplegia or quadriplegia, vegetarian diet, rapidly changing kidney function, and calculation of the dose of potentially toxic drugs that are excreted by the kidneys. 54 Concerning GFR GUIDELINES: Normal Function or Mild Renal Disease, if clinically at risk: >/=60mL/min Moderately decreased: 30-59 Severely decreased: 15-29 Renal Failure: <15 55 PER NCEP ATP III GUIDELINES: RESULTS LOWER THAN 40 MG/DL ARE SUGGESTIVE OF INCREASED RISK FOR CORONARY ARTERY DISEASE. RESULTS > OR=TO 60 MG/DL ARE CONSIDERED A NEGATIVE RISK FACTOR. 56 INTERPRETATION OF CHOL-HDL RATIO CHD RISK FEMALE MALE VERY HIGH >8.3 >14.3 HIGH 5.6 - 8.3 6.7 - 14.3 AVERAGE 3.7 - 5.6 4.0 - 6.7 BELOW AVERAGE 2.5 - 3.7 2.7 - 4.0 PROTECTED <2.5 <2.7 57 PER NCEP ATP III GUIDELINES: OPTIMAL: <100 NEAR OPTIMAL: 100 - 129 BORDERLINE HIGH: 130 - 159 HIGH: 160 - 189 VERY HIGH: >189 58 BEGINNING 06/01/06, PSA VALUES ASSAYED AT [facility] USES AN EIA METHODOLOGY MANUFACTURED BY [employer] FOR USE ON THE DXI ANALYZER. VALUES OBTAINED WITH DIFFERENT ASSAY METHODS OR KITS CAN NOT BE USED INTERCHANGEABLY. SERUM PSA MEASUREMENT IS NOT AN ABSOLUTE TEST FOR MALIGNANCY, THE PSA VALUE SHOULD BE USED IN CONJUNCTION WITH INFORMATION AVAILABLE FROM CLINICAL EVALUATION AND OTHER DIAGNOSTIC PROCEDURES. 59 Concerning GFR GUIDELINES: Normal Function or Mild Renal Disease, if clinically at risk: >/=60mL/min Moderately decreased: 30-59 Severely decreased: 15-29 Renal Failure: <15 Glomerular Filtration Rate (GFR) is estimated based on the MDRD equation, which assumes a steady state for creatinine as recommended by the National Kidney Disease Education Program in conjunction with the National Institutes of Health and the National Kidney Foundation. Clinical conditions in which it may be necessary to measure GFR by using clearance methods include extremes of age and body size, severe malnutrition or obesity, diseases of skeletal muscle, paraplegia or quadriplegia, vegetarian diet, rapidly changing kidney function, and calculation of the dose of potentially toxic drugs that are excreted by the kidneys. 60 Concerning GFR GUIDELINES: Normal Function or Mild Renal Disease, if clinically at risk: >/=60mL/min Moderately decreased: 30-59 Severely decreased: 15-29 Renal Failure: <15 61 The difference between the most recent result of 239 and the current result of 177 exceeds the absolute delta value of 50 as defined for this test. 62 PER NCEP ATP III GUIDELINES: RESULTS LOWER THAN 40 MG/DL ARE SUGGESTIVE OF INCREASED RISK FOR CORONARY ARTERY DISEASE. RESULTS > OR=TO 60 MG/DL ARE CONSIDERED A NEGATIVE RISK FACTOR. 63 INTERPRETATION OF CHOL-HDL RATIO CHD RISK FEMALE MALE VERY HIGH >8.3 >14.3 HIGH 5.6 - 8.3 6.7 - 14.3 AVERAGE 3.7 - 5.6 4.0 - 6.7 BELOW AVERAGE 2.5 - 3.7 2.7 - 4.0 PROTECTED <2.5 <2.7 64 PER NCEP ATP III GUIDELINES: OPTIMAL: <100 NEAR OPTIMAL: 100 - 129 BORDERLINE HIGH: 130 - 159 HIGH: 160 - 189 VERY HIGH: >189 65 BEGINNING 06/01/06, PSA VALUES ASSAYED AT [facility] USES AN EIA METHODOLOGY MANUFACTURED BY [employer] FOR USE ON THE DXI ANALYZER. VALUES OBTAINED WITH DIFFERENT ASSAY METHODS OR KITS CAN NOT BE USED INTERCHANGEABLY. SERUM PSA MEASUREMENT IS NOT AN ABSOLUTE TEST FOR MALIGNANCY, THE PSA VALUE SHOULD BE USED IN CONJUNCTION WITH INFORMATION AVAILABLE FROM CLINICAL EVALUATION AND OTHER DIAGNOSTIC PROCEDURES. 66 FASTING 67 Concerning GFR GUIDELINES: Normal Function or Mild Renal Disease, if clinically at risk: >/=60mL/min Moderately decreased: 30-59 Severely decreased: 15-29 Renal Failure: <15 Glomerular Filtration Rate (GFR) is estimated based on the MDRD equation, which assumes a steady state for creatinine as recommended by the National Kidney Disease Education Program in conjunction with the National Institutes of Health and the National Kidney Foundation. Clinical conditions in which it may be necessary to measure GFR by using clearance methods include extremes of age and body size, severe malnutrition or obesity, diseases of skeletal muscle, paraplegia or quadriplegia, vegetarian diet, rapidly changing kidney function, and calculation of the dose of potentially toxic drugs that are excreted by the kidneys. 68 Concerning GFR GUIDELINES: Normal Function or Mild Renal Disease, if clinically at risk: >/=60mL/min Moderately decreased: 30-59 Severely decreased: 15-29 Renal Failure: <15 69 PER NCEP ATP III GUIDELINES: RESULTS LOWER THAN 40 MG/DL ARE SUGGESTIVE OF INCREASED RISK FOR CORONARY ARTERY DISEASE. RESULTS > OR=TO 60 MG/DL ARE CONSIDERED A NEGATIVE RISK FACTOR. 70 INTERPRETATION OF CHOL-HDL RATIO CHD RISK FEMALE MALE VERY HIGH >8.3 >14.3 HIGH 5.6 - 8.3 6.7 - 14.3 AVERAGE 3.7 - 5.6 4.0 - 6.7 BELOW AVERAGE 2.5 - 3.7 2.7 - 4.0 PROTECTED <2.5 <2.7 71 PER NCEP ATP III GUIDELINES: OPTIMAL: <100 NEAR OPTIMAL: 100 - 129 BORDERLINE HIGH: 130 - 159 HIGH: 160 - 189 VERY HIGH: >189 72 RESULT LESS THAN 20 IU/ml 73 FASTING This sample is drawn by:CT 74 A Negative serologic test for Lyme Disease indicates no serologic evidence of infection with B burgdorferi at the time this specimen was collected. A repeat specimen should be collected in 2 to 4 weeks if clinically indicated. Unless otherwise specified, testing performed by [facility] [address] [place] [id number] 75 FASTING 76 Concerning GFR GUIDELINES: Normal Function or Mild Renal Disease, if clinically at risk: >/=60mL/min Moderately decreased: 30-59 Severely decreased: 15-29 Renal Failure: <15 Glomerular Filtration Rate (GFR) is estimated based on the MDRD equation, which assumes a steady state for creatinine as recommended by the National Kidney Disease Education Program in conjunction with the National Institutes of Health and the National Kidney Foundation. Clinical conditions in which it may be necessary to measure GFR by using clearance methods include extremes of age and body size, severe malnutrition or obesity, diseases of skeletal muscle, paraplegia or quadriplegia, vegetarian diet, rapidly changing kidney function, and calculation of the dose of potentially toxic drugs that are excreted by the kidneys. 77 Concerning GFR GUIDELINES: Normal Function or Mild Renal Disease, if clinically at risk: >/=60mL/min Moderately decreased: 30-59 Severely decreased: 15-29 Renal Failure: <15 78 BEGINNING 06/01/06, PSA VALUES ASSAYED AT [facility] USES AN EIA METHODOLOGY MANUFACTURED BY [employer] FOR USE ON THE DXI ANALYZER. VALUES OBTAINED WITH DIFFERENT ASSAY METHODS OR KITS CAN NOT BE USED INTERCHANGEABLY. SERUM PSA MEASUREMENT IS NOT AN ABSOLUTE TEST FOR MALIGNANCY, THE PSA VALUE SHOULD BE USED IN CONJUNCTION WITH INFORMATION AVAILABLE FROM CLINICAL EVALUATION AND OTHER DIAGNOSTIC PROCEDURES. 79 NO VISIBLE HEMOLYSIS 80 The difference between the most recent result of 10.0 and the current result of 9.6 exceeds the absolute delta value of 0.3 as defined for this test. 81 Concerning GFR GUIDELINES: Normal Function or Mild Renal Disease, if clinically at risk: >/=60mL/min Moderately decreased: 30-59 Severely decreased: 15-29 Renal Failure: <15 Glomerular Filtration Rate (GFR) is estimated based on the MDRD equation, which assumes a steady state for creatinine as recommended by the National Kidney Disease Education Program in conjunction with the National Institutes of Health and the National Kidney Foundation. Clinical conditions in which it may be necessary to measure GFR by using clearance methods include extremes of age and body size, severe malnutrition or obesity, diseases of skeletal muscle, paraplegia or quadriplegia, vegetarian diet, rapidly changing kidney function, and calculation of the does of potentially toxic drugs that are excreted by the kidneys. 82 Concerning GFR GUIDELINES: Normal Function or Mild Renal Disease, if clinically at risk: >/=60mL/min Moderately decreased: 30-59 Severely decreased: 15-29 Renal Failure: <15 83 BEGINNING 06/01/06, PSA VALUES ASSAYED AT [facility] USES AN EIA METHODOLOGY MANUFACTURED BY [employer] FOR USE ON THE DXI ANALYZER. VALUES OBTAINED WITH DIFFERENT ASSAY METHODS OR KITS CAN NOT BE USED INTERCHANGEABLY. SERUM PSA MEASUREMENT IS NOT AN ABSOLUTE TEST FOR MALIGNANCY, THE PSA VALUE SHOULD BE USED IN CONJUNCTION WITH INFORMATION AVAILABLE FROM CLINICAL EVALUATION AND OTHER DIAGNOSTIC PROCEDURES. 84 NO VISIBLE HEMOLYSIS 85 The difference between the most recent result of 8.8 and the current result of 10.0 exceeds the absolute delta value of 0.3 as defined for this test. 86 Normal Function or Mild Renal Disease, if clinically at risk: >/=60 mL/min Moderately decreased: 30-59 Severely decreased: 15-29 Renal Failure: <15 Glomerular Filtration Rate (GFR) is estimated based on the MDRD equation, which assumes a steady state for creatinine as recommended by the National Kidney Disease Education Program in conjunction with the National Institutes of Health and the National Kidney Foundation. Clinical conditions in which it may be necessary to measure GFR by using clearance methods include extremes of age and body size, severe malnutrition or obesity, diseases of skeletal muscle, paraplegia or quadriplegia, vegetarian diet, rapidly changing kidney function, and calculation of the dose of potentially toxic drugs that are excreted by the kidneys. 87 PSA VALUES ASSAYED AT [facility] USES AN EIA METHODOLOGY MANUFACTURED BY [employer] FOR USE ON THE NEXIA ANALYZER. VALUES OBTAINED WITH DIFFERENT ASSAY METHODS OR KITS CAN NOT BE USED INT ERCHANGEABLY. SERUM PSA MEASUREMENT IS NOT AN ABSOLUTE TEST FOR MALIGNANCY, THE PSA VALUE SHOULD BE USED IN CONJUNCTION WITH INFORMATION AVAILABLE FROM CLINICAL EVALUATION AND OTHER DIAGNOSTIC PROCEDURES. 88 PSA VALUES ASSAYED AT [facility] USES AN EIA METHODOLOGY MANUFACTURED BY [employer] FOR USE ON THE NEXIA ANALYZER. VALUES OBTAINED WITH DIFFERENT ASSAY METHODS OR KITS CAN NOT BE USED INT ERCHANGEABLY. SERUM PSA MEASUREMENT IS NOT AN ABSOLUTE TEST FOR MALIGNANCY, THE PSA VALUE SHOULD BE USED IN CONJUNCTION WITH INFORMATION AVAILABLE FROM CLINICAL EVALUATION AND OTHER DIAGNOSTIC PROCEDURES. 89 PSA VALUES ASSAYED AT [facility] USES AN EIA METHODOLOGY MANUFACTURED BY [employer] FOR USE ON THE NEXIA ANALYZER. VALUES OBTAINED WITH DIFFERENT ASSAY METHODS OR KITS CAN NOT BE USED INT ERCHANGEABLY. SERUM PSA MEASUREMENT IS NOT AN ABSOLUTE TEST FOR MALIGNANCY, THE PSA VALUE SHOULD BE USED IN CONJUNCTION WITH INFORMATION AVAILABLE FROM CLINICAL EVALUATION AND OTHER DIAGNOSTIC PROCEDURES. 90 PSA VALUES ASSAYED AT [facility] USES AN EIA METHODOLOGY MANUFACTERED BY [employer] FOR USE ON THE NEXIA ANALYZER. VALUES OBTAINED WITH DIFFERENT ASSAY METHODS OR KITS CAN NOT BE USED INT ERCHANGEABLY. SERUM PSA MEASUREMENT IS NOT AN ABSOLUTE TEST FOR MALIGNANCY, THE PSA VALUE SHOULD BE USED IN CONJUNCTION WITH INFORMATION AVAILABLE FROM CLINICAL EVALUATION AND OTHER DIAGNOSTIC PROCEDURES. PSA VALUES ASSAYED AT [facility] USES AN EIA METHODOLOGY MANUFA[employer]ERED BY [employer] FOR USE ON THE NEXIA ANALYZER. VALUES OBTAINED WITH DIFFERENT ASSAY METHODS OR KITS CAN NOT BE USED INT ERCHANGEABLY. SERUM PSA MEASUREMENT IS NOT AN ABSOLUTE TEST FOR MALIGNANCY, THE PSA VALUE SHOULD BE USED IN CONJUNCTION WITH INFORMATION AVAILABLE FROM CLINICAL EVALUATION AND OTHER DIAGNOSTIC PROCEDURES. Procedures Date Code Description Status 06/16/2018 69061 Electrocardiogram Complete Completed 08/03/2017 01704 Electrocardiogram Complete Completed 10/20/2016 62414 Remove Impact Cerumen Irrigation/Lavage Completed 01/28/2016 50557 Layer Closure Wound 2.6-7.5CM Completed Scalp/Axillae/Trunk/Extremities 01/28/2016 70786 Excise Benign Lesion 1.1-2CM Trunk/Arm/Leg Completed 12/31/2015 08387 Electrocardiogram Complete Completed 11/27/2014 90092 Electrocardiogram Complete Completed 09/26/2013 [id number] Colonoscopy Completed 01/03/2013 02960 Electrocardiogram Complete Completed 03/24/2012 90814 Electrocardiogram Complete Completed 07/07/2011 04290 Excise Benign Lesion > 4CM Trunk/Arm/Leg Completed 05/01/2010 68642 Excise Benign Lesion 3.1-4CM Trunk/Arm/Leg Completed 05/01/2010 27275 Excise Benign Lesion 2.1-3CM Trunk/Arm/Leg Completed 10/01/2009 47449 Electrocardiogram Complete Completed 09/06/2007 54706 Biopsy Skin Lesion Single Completed 08/07/2006 03799 Electrocardiogram Complete Completed 07/09/2005 35108 Destruction Lesion/Any Method Premalignant Lesions Completed 07/09/2005 33931 Excise Benign Lesion .6-1CM Trunk/Arm/Leg Completed 06/23/2005 48686 Electrocardiogram Complete Completed 05/03/2004 13914 Electrocardiogram Complete Completed 04/10/2003 03103 Electrocardiogram Complete Completed 02/04/2002 59128 Remove Impacted Cerumen Requiring Instrumentation Completed 02/04/2002 83088 Excise Benign Lesion <.6CM Trunk/Arm/Leg Completed 01/10/2002 61255 Electrocardiogram Complete Completed 09/21/2000 15924 Deleted Code Use 20003 Completed 09/21/2000 98258 Inject/Drain Joint/Bursa Intermediate Completed 05/22/2000 92856 Destruction Lesion/Any Method Premalignant Lesions Completed 05/22/2000 09863 Excise Benign Lesion 1.1-2CM Trunk/Arm/Leg Completed 05/22/2000 36781 Biopsy Skin Lesion Single Completed Encounters Type Date Location Provider Dx Diagnosis Office Visit 08/03/2017 10:00a Pepito Parsons PA Z00.01 Encounter for general adult medical exam w abnormal findings G40.89 Other seizures R79.82 Elevated C-reactive protein (CRP) E78.2 Mixed hyperlipidemia G47.30 Sleep apnea, unspecified Z68.41 Body mass index (BMI) 40.0-44.9, adult E66.01 Morbid (severe) obesity due to excess calories F17.210 Nicotine dependence, cigarettes, uncomplicated N40.0 Benign prostatic hyperplasia without lower urinry tract symp Office Visit 10/20/2016 10:20a Pepito Parsons PA H61.22 Impacted cerumen, LEFT ear Office Visit 05/13/2016 9:40a Pepito Parsons PA G40.89 Other seizures J01.90 Acute sinusitis, unspecified Office Visit 12/31/2015 8:20a Pepito Parsons PA Z00.01 Encounter for general adult medical exam w abnormal findings E66.01 Morbid (severe) obesity due to excess calories G47.30 Sleep apnea, unspecified F17.210 Nicotine dependence, cigarettes, uncomplicated E78.2 Mixed hyperlipidemia N40.0 Enlarged prostate without lower urinary tract symptoms D48.5 Neoplasm of uncertain behavior of skin Office Visit 11/28/2015 1:20p Sidra Spence S02.5xxB Fracture of tooth C, RN [employer] (traumatic), init encntr for open fracture Office Visit 01/01/2015 1:30p Cynthia Lamar M54.6 Pain in thoracic M, spine N20.0 Calculus of kidney R31.9 Hematuria, unspecified Office Visit 11/27/2014 9:20a Melva Bills MD 272.2 Hyperlipidemia Mixed 305.1 Tobacco Use Disorder 780.57 Apnea, Unspecified Sleep Apnea 278.01 Obesity Morbid 780.97 Altered Mental Status 599.70 Hematuria, Unspecified V76.44 Screening For Malig Ryan Prostate V70.0 Exam (Adult) General Medical Routine AT Health Care Facility Office Visit 05/26/2013 9:20a Melva Bills V72.84 Examination MD Preoperative Unspec 305.1 Tobacco Use Disorder 272.2 Hyperlipidemia Mixed Office Visit 01/03/2013 9:00a Last Mann MD V70.0 Exam ( Adult) General Medical Routine AT [facility] 724.5 Backache Unspec 354.0 Carpal Tunnel Syndrome 600.00 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 Office Visit 03/24/2012 1:30p Last Mann MD V70.0 Exam ( Adult) General Medical Routine AT [facility] 327.23 Apnea, Obstructive Sleep Apnea Adult & Pediatric 272.2 Hyperlipidemia Mixed 600.00 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 354.0 Carpal Tunnel Syndrome V04.81 Need For Prophylactic Vaccination & Inoculation/Influenza 599.70 Hematuria, Unspecified Office Visit 07/09/2011 1:45p Last Mann MD 706.2 Sebaceous Cyst Office Visit 05/29/2011 11:40a Sidra Spence, RN 461.0 Sinusitis Acute [employer] Maxillary Office Visit 10/01/2009 11:00a Last Mann MD V70.0 Exam ( Adult) General Medical Routine AT [facility] 354.0 Carpal Tunnel Syndrome 272.2 Hyperlipidemia Mixed 327.23 Apnea, Obstructive Sleep Apnea Adult & Pediatric 600.00 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 Office Visit 12/29/2008 11:00a Last Mann MD 354.0 Carpal Tunnel Syndrome 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 Office Visit 07/14/2008 10:00a Last Mann MD 719.44 Pain Joint Hand 782.0 Skin Sensation Disturbance 272.2 Hyperlipidemia Mixed 305.1 Tobacco Use Disorder V76.44 Screening For Malig Ryan Prostate Office Visit 01/31/2008 9:20a Last Mann, 272.2 Hyperlipidemia Mixed 327.23 Apnea, Obstructive Sleep Apnea Adult & Pediatric 728.87 Muscle Weakness Generalized 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 V58.69 Medications [facility] (Current) Use Encounter Office Visit 08/27/2007 11:00a Last Mann MD V70.0 Exam ( Adult) General Medical Routine AT [facility] 600.00 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 327.23 Apnea, Obstructive Sleep Apnea Adult & Pediatric 788.43 Nocturia 272.2 Hyperlipidemia Mixed V58.69 Medications [facility] (Current) Use Encounter 305.1 Tobacco Use Disorder Office Visit 02/08/2007 9:50a Last Mann 272.2 Hyperlipidemia Mixed 305.1 Tobacco Use Disorder Office Visit 08/07/2006 11:00a Last Mann MD V70.0 Exam ( Adult) General Medical Routine AT [facility] 726.32 Epicondylitis Lateral 272.2 Hyperlipidemia Mixed 327.23 Apnea, Obstructive Sleep Apnea Adult & Pediatric 302.72 Psychosexual Dysfunction W/ Inhibited Sexual Excitement V76.44 Screening For Malig Ryan Prostate Office Visit 02/04/2006 4:00p Last Mann, 272.2 Hyperlipidemia Mixed 715.09 Osteoarthrosis Generalized Multiple Sites Office Visit 10/15/2005 2:00p Last Mann, 272.2 Hyperlipidemia Mixed 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 Office Visit 10/02/2005 1:15p Melani Cameron 886.0 Amputation Finger(S) MD Last Traumatic (Complete)(Partial) W/O Comp Office Visit 07/09/2005 2:30p Candy Cameron 272.2 Hyperlipidemia Mixed MD Last 078.19 Viral Warts Spec Other 078.10 Viral Warts Unspec 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 786.2 Cough 461.0 Sinusitis Acute Maxillary 780.6 Fever 465.9 URI Upper Respiratory Infections Acute Unspec Sites Office Visit 05/22/2004 3:40p Last Mann, 272.2 Hyperlipidemia Mixed 780.09 Consciousness Alteration Other 726.32 Epicondylitis Lateral Office Visit 05/03/2004 3:00p Last Mann, 600.00 Hypertrophy Prostate MD W/O Urinary Obstruction & Other Luts V70.0 Exam (Adult) General Medical Routine AT [facility] 788.1 Dysuria V76.44 Screening For Malig Ryan Prostate Office Visit 04/10/2003 11:00a Last Mann 272.2 Hyperlipidemia Mixed 788.43 Nocturia V70.0 Exam (Adult) General Medical Routine AT [facility] Office Visit 08/08/2002 11:10a Last Mann, 726.32 Epicondylitis Lateral Office Visit 02/09/2002 2:20p Last Mann, 272.2 Hyperlipidemia Mixed 600.0 Hypertrophy Benign Of Prostate V70.0 Exam (Adult) General Medical Routine AT [facility] Office Visit 01/10/2002 10:30a Last Mann MD 786.51 Pain Precordial 786.2 Cough 465.9 URI Upper Respiratory Infections Acute Unspec Sites Office Visit 05/22/2000 11:20a Last Mann MD Office Visit 04/17/2000 11:40a Last Mann MD Office Visit 03/02/2000 11:20a Erika Angelo, RN 726.33 Bursitis Olecranon A.N.P. Plan of Treatment 06/16/2018 - Pepito Lo PAZ01.818 Encounter for other preprocedural examinationComments:pt is moderate risk for a moderate risk procedure.+smoker with KEIKO and morbidly obese. refuse to quit smoking and drinking alcohol regularly. refuses treatment and cannot tolerate CPAP for KEIKO.no HTNand Lipids stable but elevated hsCRP. Pt optimized as much as he can be for this procedure.E78.2 Mixed hyperlipidemiaComments:with borderline LDL but declines treatment despite smoking and elevated hsCRP..F17.210 Nicotine dependence, cigarettes, uncomplicatedNew Medication:Nicotine 21 mg/24HR - 1 patch dailyComments:no readiness to quitR79.82 Elevated C-reactive protein (CRP) Comments:has fluctuated hsCRP 6-9. but continues to smoke.G47.30 Sleep apnea, unspecifiedComments:h/o surgery ~10yrs ago. cannot use CPAPG40.89 Other seizuresComments:saw neuro. All NL. told to f/u if recurrence.E66.01 Morbid ( severe) obesity due to excess caloriesComments:+alcohol use -- craft beer.+ physical activity with working outside -- gardening and wood cutting + gaining even more pbgilnS69.41 Body mass index (BMI) 40.0-44.9, adult
--- OUTSIDE RECORDS SUMMARY | 2018-07-13 05:32 | XMS REPORT | Continuity of Care Document ---
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, 2018 24HR ts daily Cynthia Joshua MD Shingrix 08/03/ Active Suspension 50mcg 1unit 1 Z00.01 [facility], 2017 Rec s injection Cynthia as MD Tres directed Massage Therapy 02/03/ Active DX: Degen Monthly as 715.09 [facility], 2015 Arthritis a medical Cynthia necessity MD Tres Azithromycin 05/13/ Hx Tablets 500mg 3tabs 1 by mouth J01.90 Olivier, 2016 - every day Cynthia 05/16/ MD Tres 2016 Hydrocodone 05/13/ Hx Syrup 5-1.5mg/5M 200ml 1 tsp q J01.90 Olivier, Bitartrate/Domenica 2017 - L 4-6hrs prn Cynthia tropine 05/20/ MD Tres Methylbromide 2016 No Active 01/27/ Hx Unknown Medications 2015 - 2015 Cephalexin 11/27/ Hx Tablets 500mg 30tab 1 by mouth S02.5xxB Jose, 2015 - s Three Sidra 01/27/ times a C, RN MS 2015 PUBLIC ADDRESS TECHNICIAN Tamsulosin HCL 01/01/ Hx Capsules 0.4mg 30cap 1 by mouth N20.0 Olivier, 2014 - s every day Cynthia 11/27/ MD Tres 2015 Ondansetron 01/01/ Hx Tablets 4mg 30tab 1 by mouth N20.0 Olivier, 2015 - Dispers s twice a Cynthia 11/27/ day as MD Tres 2016 needed nausea No Active 11/27/ Hx Unknown Medications 2014 - 2014 Zithromax Z-Florentin 03/24/ Hx Tablets 250mg 1tabs take as Nisha 2011 - directed Last 01/03/ 2012 Keflex 07/08/ Hx Capsules 500mg 20cap 1 po qid 706.2 Nisha, 2011 - s Last 03/24/ 2011 Amoxicillin 05/29/ Hx Tablets 875mg 28tab 1 po bid 461.0 Jose, 2011 - s Sidra 07/08/ Tresa, RN MS 2011 PUBLIC ADDRESS TECHNICIAN Hycotuss 05/29/ Hx Liquid 100mg;5mg/ 120ml 1 tsp ac 461.0 [place], Expectorant 2011 - 5ML and hs Sidra 05/29/ C, RN MS 2011 PUBLIC ADDRESS TECHNICIAN Combivent 05/29/ Hx Aerosol 18-103mcg/ 1unit 2 puffs 461.0 Nisha, 2011 - Act s tid for Last, 05/26/ duration 2013 of cough Cheratussin ac 05/29/ Hx Syrup 100-10mg/5 120un 1 tsp ac 461.0 Jose, 2011 - ML its and hs Sidra 06/07/ C, RN MS 2011 PUBLIC ADDRESS TECHNICIAN Massage Therapy 10/01/ Hx DX: Degen Monthly as 715.09 Nisha, 2009 - Arthritis a medical Last, 11/27/ necessity 2015 Simvastatin 02/10/ Hx Tablets 20mg 30tab 1 PO qd 272.2 Nisha, 2007 - s Last 10/01/ 2009 Chantix Starter 02/08/ Hx #1Pack 1unit as 305.1 Nisha, Joe 2007 - s directed Last, 08/26/ 2007 Chantix 02/08/ Hx Tablets 1mg 60tab 1 bid with 305.1 Nisha, 2006 - s increased Last, 01/03/ fluids 2012 Massage Therapy DX: Degen Rx: 715.09 Nisha, 2005 - [...] Liquid 100mg;5mg 120ml 1 tsp ac and [place], Expectorant 05/29/2011 /5ML hs Kendy NSha Nathaly D 07/08/2004 - Hx Tablets 60mg;120 20tabs 1 PO Q 12H Dawson, 06/23/2005 mg Kendy, N.P. Medications Administered in Office Medication Date Status Form Strength Qnty SIG Indications Ordering Provider Depo Medrol 20 Administered Injection Nisha, MG 001 MD Last Immunizations CPT Code Status Date Vaccine Reaction Lot # [id number] Given 03/24/2012 Fluzone Trivalent Immunization [id number] Given 10/02/2005 Tetanus And Diptheria Toxoids For Adult NONE NOTED [id number] Use-preservative free Vital Signs Date Vital Result [...] Range Note CBC with [facility]-fcmg [facility] 10.0 K/uL 4.1-11.0 RBC 5.21 M/uL [...] mg/dL 2-29 LDL (Calc) 135 mg/dL High 20-99 14 Laboratory test finding 08/03/2017 [facility] TSH [...] High 2-29 LDL (Calc) 125 mg/dL High 20-99 19 Hepatic Panel (LFT) 12/31/2015 [facility] Total [...] <SEE 25 finding NOTE> [facility] Microbiology res <SEE 26 finding [...] 0.1 K/uL 0.0-0.3 Comprehensive Metabolic (CMP) 11/27/2014 [facility] Sodium 138 mmol/L 134- 142 Potassium 4.5 [...] [place] Egfr >60 >60 29 Lipid 11/27/2014 [facility] Cholesterol 198 mg/dL 50-199 Triglycerides 190 mg/dL [...] 0.1 K/uL 0.0-0.3 Comprehensive Metabolic (CMP) 01/03/2013 [facility] Sodium 140 mmol/L 134- 142 Potassium 4.6 [...] [facility] SEE NOTE 50 finding [facility] Laboratory test 05/01/2010 [facility] (Do not Use) Histology/Surgi (SEE NOTE) 51 finding [facility] [place] [address] [phone] CMP 10/01/2009 [facility] (Do not Use) Sodium 141 mmol/L 135-144 52 [facility] [place] [address] [phone] Potassium 4.8 mmol/L 3.6-5.2 Chloride 109 mmol/L [...] not Use) WBC 6.7 K/ul 4.0- 10.9 [facility] [place] [address] [phone] RBC 5.10 M/ul 4.70-6.10 Hemoglobin 15.7 GM/dl [...] not Use) Cholesterol 205 mg/dL High 50-199 [facility] [place] [address] [phone] Triglycerides 167 mg/dL High 10-150 HDL 42 mg/dL 29-71 55 Chol/HDL Ratio 4.9 Ratio 4.0-6.7 56 VLDL 33 mg/dL High 2-29 LDL (Calc) 130 mg/dL High 20-129 57 Laboratory test 10/01/2009 [facility] (Do not Use) PSA 2.04 ng/ml 0.00- 4.00 58 finding [facility] [place] [address] [phone] CMP 07/14/2008 [facility] (Do not Use) Sodium 142 mmol/L 135-144 [place] [address] [phone] Potassium 4.5 mmol/L 3.6-5.2 Chloride 103 mmol/L [...] Use) Cholesterol 177 mg/dL 50 -199 61 [facility] [place] [address] [phone] Triglycerides 57 mg/dL 10-150 HDL 61 mg/dL 29-71 62 Chol/HDL Ratio 2.9 Ratio Low 4.0-6.7 63 VLDL 11 mg/dL 2-29 LDL (Calc) 105 mg/dL 20-129 64 CBC With Auto Diff 07/14/2008 [facility] (Do not Use) WBC 7.9 K/ul 4.0- 10.9 [facility] [place] [address] [phone] RBC 4.87 M/ul 4.70-6.10 Hemoglobin 14.4 GM/dl [...] PSA 1.61 ng/ml 0.00- 4.00 65 finding [facility] [place] [address] [phone] TSH 0.92 uIU/ml 0.34-5.60 CMP 01/31/2008 [facility] (Do not Use) Sodium 141 mmol/L 135-144 66 [facility] [place] [address] [phone] Potassium 4.7 mmol/L 3.6-5.2 Chloride 106 mmol/L [...] not Use) Cholesterol 239 mg/dL High 50-199 [facility] [place] [address] [phone] Triglycerides 126 mg/dL 10-150 HDL 52 mg/dL 29-71 69 Chol/HDL Ratio 4.6 Ratio 70 VLDL 25 mg/dL LDL (Calc) 162 mg/dL High 20-129 71 Laboratory test finding 01/31/2008 [facility] (Do not Use) CPK 124 U/L 49-397 [facility] [place] [address] [phone] Bel[place] Screen Neg Rheumatoid Factor -Quant. RESULT LESS THAN <SEE NOTE> IU/mL 72 TSH 1.26 uIU/ml 0.34-5.60 Laboratory 01/31/2008 [facility] (Do not Use) Lyme Igm/Igg NEGATIVE ( Neg) 73, 74 test finding [facility] [place] [address] [phone] CMP 08/27/2007 [facility] (Do not Use) Sodium 140 mmol/L 135-144 75 [facility] [place] [address] [phone] Potassium 5.0 mmol/L 3.6-5.2 Chloride 106 mmol/L [...] not Use) Cholesterol 245 mg/dL High 50-199 [facility] [place], [place] [address] [phone] Triglycerides 131 mg/dL 10-150 HDL 38 mg/dL 29-71 Chol/HDL Ratio 6.5 Ratio VLDL 26 mg/dL LDL (Calc) 181 mg/dL High 20-129 Laboratory test 08/27/2007 [facility] (Do not Use) PSA 2.43 ng/ml 0.00- 4.00 78 finding [facility] [place] [address] [phone] TSH 0.64 uIU/ml 0.34-5.60 Lipid Panel 02/08/2007 [facility] (Do not Use) Cholesterol 246 mg/dL High 50-199 [facility] [place] [address] [phone] Triglycerides 164 mg/dL High 10-150 HDL 42 mg/dL 29-71 Chol/HDL Ratio 5.9 Ratio VLDL 33 mg/dL LDL (Calc) 171 mg/dL High 20-129 Urinalysis -RL 08/07/2006 [facility] (Do not Use) Color -LA YELLOW [facility] [place] [address] [phone] Appearance -LA TURBID Specific [place] -LA 1.026 1.003-1.030 Leukocyte Esterase -LA NEGATIVE (Neg) Nitrite -LA NEGATIVE (Neg) PH Urine -LA 5.5 5.0-7.5 Protein Urine-LA NEGATIVE (Neg) Glucose Urine -LA NEGATIVE (Neg) Ketone Urine -LA NEGATIVE (Neg) Urobilinogen -LA NORMAL (Norm) Bilirubin Urine -LA NEGATIVE (Neg) Blood/HGB Urine-RL 1+ Abnormal (Neg) Urine Microscopic, 08/07/2006 [facility] (Do not Use) Urine WBC NONE SEEN (0-5) Only -RL [facility] -[place] /[place] [address] [phone] Urine RBC -LA NONE SEEN /HPF (0-2) Amorphous 3+ /HPF CMP 08/07/2006 [facility] (Do not Use) Sodium 140 mmol/L 135-144 [facility] [place] [address] [phone] Potassium 5.5 mmol/L High 3.6-5.2 79 Chloride [...] not Use) WBC 7.5 K/ul 4.0- 10.9 [facility] [place] [address] [phone] RBC 5.12 M/ul 4.70-6.10 Hemoglobin 15.4 GM/dl [...] not Use) Cholesterol 226 mg/dL High 50-199 [facility] [place] [address] [phone] Triglycerides 106 mg/dL 10-150 HDL 48 mg/dL 29-71 Chol/HDL Ratio 4.7 Ratio VLDL 21 mg/dL LDL (Calc) 157 mg/dL High 20-129 Laboratory test 08/07/2006 [facility] (Do not Use) PSA 2.00 ng/ml 0.00- 4.00 83 finding [facility] [place], [place] [id number] [phone] Lipid TX Panel 02/04/2006 [facility] (Do not Use) Ast 19 U/L 12-40 [facility] [place] [address] [phone] Alt 23 U/L 4-45 Cholesterol 191 mg/dL 50-199 Triglycerides 357 mg/dL High 10-150 HDL 50 mg/dL - LDL (Calc) 70 mg/dL 20-129 Chol/HDL Ratio 3.8 Ratio VLDL 71 mg/dL Laboratory test 02/04/2006 [facility] (Do not Use) Direct LDL 114 mg/dL 20-129 finding [facility] [place] [address] [phone] Lipid TX Panel 10/15/2005 [facility] (Do not Use) Ast 21 U/L 12-40 [facility] [place] [address] [phone] Alt 26 U/L 4-45 Cholesterol 188 mg/dL 50-199 Triglycerides 201 mg/dL High 10-150 HDL 45 mg/dL - LDL (Calc) 103 mg/dL 20-129 Chol/HDL Ratio 4.2 Ratio VLDL 40 mg/dL CMP 06/23/2005 [facility] (Do not Use) Sodium 144 mmol/L 135-144 [facility] [place] [address] [phone] Potassium 5.4 mmol/L High 3.6-5.2 84 Chloride [...] not Use) Cholesterol 251 mg/dL High 50-199 [facility] [place] [address] [phone] Triglycerides 113 mg/dL 10-150 HDL 60 mg/dL 29-71 Chol/HDL Ratio 4.2 Ratio VLDL 23 mg/dL LDL (Calc) 168 mg/dL High 20-129 CBC 06/23/2005 [facility] (Do not Use) WBC 8.1 K/ul 4.0-10.9 [facility] [place] [address] [phone] RBC 5.03 M/ul 4.70-6.10 Hemoglobin 15.5 GM/dl [...] PSA 1.87 ng/ml 0.00- 4.00 87 finding [facility] [place] [address] [phone] Laboratory test 05/03/2004 [facility] (Do not Use) PSA 1.77 ng/ml 0.00- 4.00 88 finding [facility] [place], [place] [id number] [phone] Lipid Panel 05/03/2004 [facility] (Do not Use) Cholesterol 215 mg/dL High 50-199 [facility] [place], [place] [id number] [phone] Triglycerides 81 mg/dL 30-200 HDL 49 mg/dL 29-71 Chol/HDL Ratio 4.4 Ratio VLDL 16 mg/dL LDL (Calc) 150 mg/dL High 20-129 CMP 05/03/2004 [facility] (Do not Use) Sodium 144 mmol/L 135-145 [facility] [place] [address] [phone] Potassium 4.9 mmol/L 3.4-5.3 Chloride 108 mmol/L [...] not Use) Cholesterol 251 mg/dL High 50-199 [facility] [place], [place] [address] [phone] Triglycerides 149 mg/dL 30-200 HDL 45 mg/dL 29-71 Chol/HDL Ratio 5.6 Ratio VLDL 30 mg/dL LDL (Calc) 176 mg/dL High 20-129 CMP 04/10/2003 [facility] (Do not Use) Sodium 142 mmol/L 135-145 [facility] [place] [address] [phone] Potassium 4.4 mmol/L 3.4-5.3 Chloride 103 mmol/L [...] PSA 1.70 ng/ml 0.00- 4.00 89 finding [facility] [place] [address] [phone] CBC 04/10/2003 [facility] (Do not Use) WBC 8.8 K/ul 4.1-10.9 [facility] [place] [address] [phone] RBC 5.32 M/ul 4.20-6.30 Hemoglobin 16.0 GM/dl [...] (Do not Use) Sodium 140 mmol/L 135-145 [facility] [place] [address] [phone] Potassium 4.6 mmol/L 3.6-5.0 Chloride 104 mmol/L [...] not Use) Cholesterol 219 mg/dL High 50-199 [facility] [place] [address] [phone] Triglycerides 181 mg/dL 30-249 HDL 48 mg/dL 29-71 Chol/HDL Ratio 4.6 Ratio VLDL 36 mg/dL LDL (Calc) 135 mg/dL High 20-129 Laboratory test 02/09/2002 [facility] (Do not Use) PSA 1.93 ng/ml 0.00- 4.00 90 finding [facility] [place] [address] [phone] CBC 02/09/2002 [facility] (Do not Use) WBC 8.3 K/ul 4.1-10.9 [facility] [place] [address] [phone] RBC 5.10 M/ul 4.2-6.3 Hemoglobin 15.1 GM/dl [...] 15 Beginning 06/01/06 PSA values assayed at [facility] uses chemiluminescence methodology manufactured by [employer] for use on the DXI analyzer. Values obtained with different assay methods or kits can not be used interchangeably. Serum PSA measurement is not an absolute test for malignancy. The PSA value should be used in conjunction with information available from clinical evaluation and other diagnostic procedures. 16 Laboratory [place] [address] Surgical Pathology Report Specimen(s) Received A: Left [...] FIBROFATTY CONNECTIVE TISSUE. Technical component processed at [facility], Histopathology, [address] [place] [address], [id number]. Diagnosis and reporting performed at [facility], [address] [place] [address]. As applicable, positive and negative controls for all immunohistochemical and/or special stains were reviewed and considered appropriate. Reported: 01/30/2016 17:43 Electronically Signed Out By Ursula Whittington M.D. emg This report may include one or more immunohistochemical or in-situ hybridization results. Testing has been developed and the performance characteristics were determined by [facility] as required by CLIA '88 regulations. The tests may not have been approved for a given specific use by the US Food and Drug Administration, but the FDA has determined that such approval is not necessary for clinical use. Unless otherwise specified, testing performed by [facility] [place] [address] 17 Beginning 06/01/06 PSA values assayed at [facility] uses chemiluminescence methodology manufactured by [employer] for use on the DXI analyzer. Values [...] 24 Unless otherwise specified, testing performed by [facility] [place] [address] 25 Microbiology results SOURCE URINE FINAL RESULT No growth 26 Microbiology results SOURCE URINE FINAL RESULT No growth 27 Unless otherwise specified, testing performed by [facility] [address] [place] [phone] 28 Concerning GFR Guidelines for Americans: Normal [...] 32 Beginning 06/01/06 PSA values assayed at [facility] uses an EIA methodology manufactured by Mirella Meican for use on the DXI analyzer. Values [...] 42 Beginning 06/01/06 PSA values assayed at [facility] uses an EIA methodology manufactured by Mirella Meican for use on the DXI analyzer. Values [...] Unless otherwise specified, testing performed by [facility] [address] [place] [phone] 45 Concerning GFR Guidelines for Americans: Normal [...] 49 Beginning 06/01/06 PSA values assayed at [facility] uses an EIA methodology manufactured by Mirella Meican for use on the DXI analyzer. Values obtained with different assay methods or kits can not be used interchangeably. Serum PSA measurement is not an absolute test for malignancy. The PSA value should be used in conjunction with information available from clinical evaluation and other diagnostic procedures. 50 Laboratory [place] [address] Surgical Pathology Report Specimen(s) Received A: Right [...] cm white cyst with chalky, friable material. Jawbone Puller sections are submitted in one cassette. (The measurements of the specimen(s) may be less than those in vivo due to tissue shrinkage during histologic fixation and processing.) paw dme/jrf Diagnosis SKIN, RIGHT SHOULDER BLADE AREA: Disrupted epidermal inclusion cyst filled with keratinous debris. Focal surrounding fibrosis and chronic inflammation is noted, suggestive of prior rupture. Technical component processed at [facility], Histopathology, [address] [place] [address], [phone]. Diagnosis and reporting performed at [facility], [address] [place] [address]. Reported: 07/09/2011 13:23 Electronically Signed Out By Truong Mayfield M.D. paw ICD9 Codes 706.2 Unless otherwise specified, testing performed by [facility] [address] [place] [address] Surgical Pathology Report Specimen(s) Received A: Shoulder [...] tissue shrinkage during histologic fixation and processing.) g dme/jrf Diagnosis SKIN AND SUBCUTANEOUS TISSUE, SHOULDER BLADE: Small epidermal inclusion cyst. Multiple levels examined. Technical component processed at [facility], Histopathology, [address] [place] [address], [address]. Diagnosis and reporting performed at [facility], [address] [place] [address]. Reported: 05/06/2010 11:17 Electronically Signed Out By Truong Mayfield M.D. paw ICD9 Codes 706.2 Unless otherwise specified, testing performed by [facility] [address] [place] [phone] FASTING This sample is drawn by:CT [...] 58 BEGINNING 06/01/06, PSA VALUES ASSAYED AT [facility] USES AN EIA METHODOLOGY MANUFACTURED BY [employer]A [employer] FOR USE ON THE DXI ANALYZER. VALUES [...] 65 BEGINNING 06/01/06, PSA VALUES ASSAYED AT [facility] USES AN EIA METHODOLOGY MANUFACTURED BY [employer] FOR USE ON THE DXI ANALYZER. VALUES [...] Unless otherwise specified, testing performed by [facility] [address] [place] [phone] 75 FASTING 76 Concerning GFR GUIDELINES: Normal [...] 78 BEGINNING 06/01/06, PSA VALUES ASSAYED AT [facility] USES AN EIA METHODOLOGY MANUFACTURED BY [facility] FOR USE ON THE DXI ANALYZER. VALUES [...] 83 BEGINNING 06/01/06, PSA VALUES ASSAYED AT [facility] USES AN EIA METHODOLOGY MANUFACTURED BY [facility] FOR USE ON THE DXI ANALYZER. VALUES [...] the kidneys. 87 PSA VALUES ASSAYED AT [facility] USES AN EIA METHODOLOGY MANUFACTURED BY [employer] FOR USE ON THE NEXIA ANALYZER. VALUES OBTAINED WITH DIFFERENT ASSAY METHODS OR KITS CAN NOT BE USED INT ERCHANGEABLY. SERUM PSA MEASUREMENT IS NOT AN ABSOLUTE TEST FOR MALIGNANCY, THE PSA VALUE SHOULD BE USED IN CONJUNCTION WITH INFORMATION AVAILABLE FROM CLINICAL EVALUATION AND OTHER DIAGNOSTIC PROCEDURES. 88 PSA VALUES ASSAYED AT [facility] USES AN EIA METHODOLOGY MANUFACTURED BY [employer] FOR USE ON THE NEXIA ANALYZER. VALUES OBTAINED WITH DIFFERENT ASSAY METHODS OR KITS CAN NOT BE USED INT ERCHANGEABLY. SERUM PSA MEASUREMENT IS NOT AN ABSOLUTE TEST FOR MALIGNANCY, THE PSA VALUE SHOULD BE USED IN CONJUNCTION WITH INFORMATION AVAILABLE FROM CLINICAL EVALUATION AND OTHER DIAGNOSTIC PROCEDURES. 89 PSA VALUES ASSAYED AT [facility] USES AN EIA METHODOLOGY MANUFACTURED BY [employer] FOR USE ON THE NEXIA ANALYZER. VALUES OBTAINED WITH DIFFERENT ASSAY METHODS OR KITS CAN NOT BE USED INT ERCHANGEABLY. SERUM PSA MEASUREMENT IS NOT AN ABSOLUTE TEST FOR MALIGNANCY, THE PSA VALUE SHOULD BE USED IN CONJUNCTION WITH INFORMATION AVAILABLE FROM CLINICAL EVALUATION AND OTHER DIAGNOSTIC PROCEDURES. 90 PSA VALUES ASSAYED AT [facility] USES AN EIA METHODOLOGY MANUFACTERED BY [employer] FOR USE ON THE NEXIA ANALYZER. VALUES OBTAINED WITH DIFFERENT ASSAY METHODS OR KITS CAN NOT BE USED INT ERCHANGEABLY. SERUM PSA MEASUREMENT IS NOT AN ABSOLUTE TEST FOR MALIGNANCY, THE PSA VALUE SHOULD BE USED IN CONJUNCTION WITH INFORMATION AVAILABLE FROM CLINICAL EVALUATION AND OTHER DIAGNOSTIC PROCEDURES. PSA VALUES ASSAYED AT [facility] USES AN EIA METHODOLOGY MANUFACTERED BY [employer] FOR USE ON THE NEXIA ANALYZER. VALUES OBTAINED WITH DIFFERENT ASSAY METHODS OR KITS CAN NOT BE USED INT ERCHANGEABLY. SERUM PSA MEASUREMENT IS NOT AN ABSOLUTE TEST FOR MALIGNANCY, THE PSA VALUE SHOULD BE USED IN CONJUNCTION WITH INFORMATION AVAILABLE FROM CLINICAL EVALUATION AND OTHER DIAGNOSTIC PROCEDURES. Procedures Date Code Description Status 06/16/2018 37680 Electrocardiogram Complete Completed 08/03/2017 57989 Electrocardiogram Complete Completed 10/20/2016 43848 Remove Impact Cerumen Irrigation/Lavage Completed 01/28/2016 45332 Layer Closure Wound 2.6-7.5CM Completed Scalp/Axillae/Trunk/Extremities 01/28/2016 49850 Excise Benign Lesion 1.1-2CM Trunk/Arm/Leg Completed 12/31/2015 48025 Electrocardiogram Complete Completed 11/27/2014 00079 Electrocardiogram Complete Completed 09/26/2013 [id number] Colonoscopy Completed 01/03/2013 88858 Electrocardiogram Complete Completed 03/24/2012 41453 Electrocardiogram Complete Completed 07/07/2011 48457 Excise Benign Lesion > 4CM Trunk/Arm/Leg Completed 05/01/2010 47223 Excise Benign Lesion 3.1-4CM Trunk/Arm/Leg Completed 05/01/2010 00751 Excise Benign Lesion 2.1-3CM Trunk/Arm/Leg Completed 10/01/2009 32224 Electrocardiogram Complete Completed 09/06/2007 88243 Biopsy Skin Lesion Single Completed 08/07/2006 21186 Electrocardiogram Complete Completed 07/09/2005 05125 Destruction Lesion/Any Method Premalignant Lesions Completed 07/09/2005 19126 Excise Benign Lesion .6-1CM Trunk/Arm/Leg Completed 06/23/2005 88184 Electrocardiogram Complete Completed 05/03/2004 82371 Electrocardiogram Complete Completed 04/10/2003 65383 Electrocardiogram Complete Completed 02/04/2002 27933 Remove Impacted Cerumen Requiring Instrumentation Completed 02/04/2002 11683 Excise Benign Lesion <.6CM Trunk/Arm/Leg Completed 01/10/2002 30353 Electrocardiogram Complete Completed 09/21/2000 67466 Deleted Code Use 21329 Completed 09/21/2000 17464 Inject/Drain Joint/Bursa Intermediate Completed 05/22/2000 96955 Destruction Lesion/Any Method Premalignant Lesions Completed 05/22/2000 18851 Excise Benign Lesion 1.1-2CM Trunk/Arm/Leg Completed 05/22/2000 26920 Biopsy Skin Lesion Single Completed Encounters Type [...] S02.5xxB Fracture of tooth C, RN [place] PUBLIC ADDRESS TECHNICIAN (traumatic), init encntr for open fracture Office [...] Sidra Spence, RN 461.0 Sinusitis Acute [place] PUBLIC ADDRESS TECHNICIAN Maxillary Office Visit 10/01/2009 11:00a Last Mann [...] 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 V58.69 Medications Deputy Manager (Current) Use Encounter Office Visit 08/27/2007 11:00a Last Mann MD V70.0 Exam ( Adult) General Medical Routine AT [facility] 600.00 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 327.23 Apnea, Obstructive Sleep Apnea Adult & Pediatric 788.43 Nocturia 272.2 Hyperlipidemia Mixed V58.69 Medications Half-Way (Current) Use Encounter 305.1 Tobacco Use Disorder [...] Ryan Prostate Office Visit 02/04/2006 4:00p Last Mann 272.2 Hyperlipidemia Sid BARRETT 715.09 Osteoarthrosis Generalized Multiple Sites Office Visit 10/15/2005 2:00p Last Mann, 272.2 Hyperlipidemia Sid BARRETT 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 Office Visit 10/02/2005 1:15p Melani Cameron 886.0 Amputation Finger(S) MD Last Traumatic (Complete)(Partial) W/O Comp Office Visit 07/09/2005 2:30p Candy Cameron 272.2 Hyperlipidemia Sid Ni MD 078.19 Viral Warts Spec Other 078.10 Viral [...] Visit 05/22/2004 3:40p Last Mann, 272.2 Hyperlipidemia Sid BARRETT 780.09 Consciousness Alteration Other 726.32 Epicondylitis Lateral Office Visit 05/03/2004 3:00p Last Mann, 600.00 Hypertrophy Prostate MD W/O Urinary Obstruction & Other Luts V70.0 Exam (Adult) General Medical Routine AT [facility] Care Facility 788.1 Dysuria V76.44 Screening For Malig Ryan Prostate Office Visit 04/10/2003 11:00a Last Mann 272.2 Hyperlipidemia Sid BARRETT 788.43 Nocturia V70.0 Exam (Adult) General Medical [...] and wood cutting + gaining even more [id number] Body mass index (BMI) 40.0-44.9, adult
[2018-07-13] MEDS ORDERED: ceFAZolin 2 GM in NS PREMIX(*) 2 GM/100 ML BAG IVPB ONE (06:11)
[2018-07-13] MEDS ORDERED: ceFAZolin 1 GM ADVAN(*) 1 GM ADDV.VIAL IVPB ONE (06:11)
[2018-07-13] MEDS ORDERED: ROPIVACAINE 5 MG/ML 30 ML BTL (0.5%) ONE (06:50)
[2018-07-13] MEDS ORDERED: Bupivacaine 0.5% SDV PF* 30ML VIAL ONE ×2 (07:31→08:12)
[2018-07-13] MEDS ORDERED: fentaNYL* 50 MCG/ML 2 ML VIAL (100 MCG VIAL) ONE (07:34)
[2018-07-13] MEDS ORDERED: Midazolam* 1 MG/ML 5 ML VIAL (5 MG) ONE (07:34)
[2018-07-13] MEDS ORDERED: EPHEDrine (Pressors)* 50 MG/ML VIAL ONE (07:57)
[2018-07-13] MEDS ORDERED: Bupivacaine 0.5% W/EPI SDV* 30 ML VIAL ONE (08:12)
[2018-07-13] MEDS ORDERED: Propofol* 10 MG/ML 20 ML BTL ONE (08:31)
[2018-07-13] MEDS ORDERED: Naloxone* 0.4 MG/ML 1 ML VIAL IV PRN (09:40)
[2018-07-13] MEDS ORDERED: Ondansetron TAB* 4 MG PO PRN (10:32)
[2018-07-13] MEDS ORDERED: Polyethylene Glycol 3350* 17 GM PACKET PO PRN (10:32)
[2018-07-13] MEDS ORDERED: diPHENhydraMINE IV* 50 MG/ML 1 ml VIAL (BENADRYL) IV PRN (10:32)
[2018-07-13] MEDS ORDERED: Magnesium Hydroxide LIQ* 30 ML UDC PO PRN (10:32)
[2018-07-13] MEDS ORDERED: Bisacodyl SUPP* 10 MG SUPP PR PRN (10:32)
[2018-07-13] MEDS ORDERED: oxyCODONE/Acetamin 5/325 MG* TAB PO PRN (10:32)
[2018-07-13] MEDS ORDERED: Ondansetron INJ* 2 MG/ML VIAL IV PRN (10:32)
[2018-07-13] MEDS ORDERED: Cyclobenzaprine TAB* 10 MG PO PRN (10:32)
[2018-07-13] MEDS ORDERED: Morphine 4 MG/ML VIAL (1 ml) 4 MG/ML VIAL IV PRN (10:32)
--- NOTE | 2018-07-13 10:36 | PN ---
Progress Note - Progress Note Date of Service: 07/13/18 Note: resting comfotably without any complaints of pain; able to dorsi flex/plantar flex, 2+ DP pulse, dressing c/d/i
[2018-07-13] MEDS ORDERED: oxyCODONE/Acetamin 5/325 MG* TAB ONE (10:39)
[2018-07-13] MEDS: oxyCODONE/Acetamin 5/325 MG* TAB PO PRN ×3 (10:39→23:09)
[2018-07-13] MEDS ORDERED: HYDROmorphone INJ1* 1 MG/ML SYRINGE ONE ×3 (11:06→12:18)
[2018-07-13] MEDS ORDERED: hydrALAZINE IV* 20 MG/ML VIAL ONE (12:39)
[2018-07-13] MEDS ORDERED: Morphine INJ* 2 MG/ML 1 ML SYRINGE (TWO MG - NEW SYRINGE VERSION) ONE (14:07)
[2018-07-13] MEDS: Lactated Ringers 1000 ML Bag* 1,000 ML IV SCH ×2 (14:09→23:33)
[2018-07-13] MEDS: Acetaminophen TAB* 325 MG PO SCH ×2 (14:36→23:37)
[2018-07-13] MEDS: oxyCODONE TAB* 5 MG TAB PO PRN ×2 (15:18→19:55)
[2018-07-13] MEDS: ceFAZolin 1 GM ADVAN(*) 1 GM in NS 0.9% 50 ML* 50 ML IVPB SCH ×2 (16:36→23:33)
--- NOTE | 2018-07-13 19:33 | OP ---
Operative Report - Blank - Operative Report Date of Operation: 07/13/18 Note: JOSE ALBERTO PRATT 1955 Date of Surgery: 07/13/18 Aleksandra Rodgers MD Paste Worker: Valencia LAY did help throughout the procedure with preparation of the knee, wound retraction, manipulation of the knee, and wound closure. Anesthesiologist: Dr. Lr Anesthesia Type: Spinal Preoperative Diagnosis: Right severe degenerative osteoarthritis of the knee Postoperative Diagnosis: As above Procedure Performed: Right Total Knee Arthroplasty Tourniquet time: 53 minutes Complications: None Specimen: Bone and cartilage from the right knee joint sent to pathology. Hardware Used: Cemented Amos and Nephew total knee hardware was used - For the femur a size 7 right legion posterior stabilized femoral component, for the tibia a size 6 right thompson II tibial baseplate, for the insert a size 9 5-6 posterior stabilized articular polyethylene insert, and for the patella a size 35 3-peg all poly patella. Brief History/Indication: JOSE ALBERTO PRATT was known in clinic and had a history of severe right knee pain and swelling. He failed conservative treatment with anti-inflammatories, pain pills, intra-articular injections and physical therapy. He elected to undergo right total knee arthroplasty due to continued pain and decreased quality of life. Radiographs showed severe end stage osteoarthritis of the knee with bone on bone contact. Informed consent was obtained from the patient. He understood the risks of surgery included but were not limited to: bleeding, infection, damage to nearby structures, intraoperative fracture, nerve palsy, failure of the hardware, early loosening, knee stiffness or loss of motion, anesthesia complications, stroke, heart attack , blood clot and . He wished to proceed. Intra-Operative Findings: Intraoperatively the patient was noted to have severe loss of cartilage in all 3 compartments of the knee. Description of the Procedure: JOSE ALBERTO PRATT was identified in the preanesthesia unit. His right knee was marked as the correct operative side. Informed consent was signed and placed in the chart. The patient was taken to the operating room and placed under anesthesia without complication. A chapman catheter was placed. A tourniquet was placed on the right thigh. The right lower extremity was prepped and draped in the usual sterile fashion. Preoperative time-out was made to correctly identify the patient, side and site. Appropriate intraoperative antibiotics were given within one hour of incision. Tourniquet was inflated. A midline incision was made and carried sharply down to the extensor mechanism. A new 10 blade was used to make a standard medial parapatellar arthrotomy. The patella was subluxed laterally. Electrocautery was used to dissect soft tissue off the superomedial tibia to the midsagittal plane. The knee was flexed up. The anterior horn of the lateral meniscus and the ACL were sharply incised. A drill was used to enter the distal femur. The intramedullary distal femoral cutting guide was pinned on the distal femur. The oscillating saw was used to make the distal femoral cut. The external rotation guide was pinned on the distal femur and the distal femur was sized to a size 7. The size 7 multi-cutting jig was pinned on the distal femur. The oscillating saw was used to make the appropriate 4 chamfer cuts. Next the PCL was completely released. The extramedullary tibial cutting guide was pinned on the proximal tibia and the oscillating saw was used to make the proximal tibial cut perpendicular to the mechanical axis of the tibia. The bone was carefully removed. The knee was brought out into full extension. The spacer block was placed and had excellent fit with the knee in full extension. The medial and lateral ligaments were well balanced. The flexion and extension gaps were well balanced. The knee was flexed up. Lamina group chief operator was placed both medially and laterally. Any remaining meniscus was removed with electrocautery. Curved osteotome was used to remove any posterior osteophytes. The tibial tray and drop alvaro were placed and confirmed a satisfactory tibial cut. The size 7 right femoral trial was impacted onto the distal femur. This trial had excellent fit and stability. The box for the posterior stabilized implant was prepared using a box cut osteotome and a reamer. Next a tibial tray trial and 9 mm insert trial was placed. The knee was taken through a range of motion and had full extension to 130 degrees of flexion. Patellofemoral tracking was satisfactory. The patella was inverted and sized to a size 35. Three peg holes were drilled through the size 35 drill guide. The trial patella was placed and the knee was taken through a range of motion. There was satisfactory patellofemoral tracking. All trials were removed. The tibia was subluxed anteriorly and sized to a size 6. The proximal tibial was prepared with a size 6 keel punch. All bony cut surfaces were irrigated with sterile saline and dried. Final implants were cemented into place starting with the tibia, followed by the femur, and last the patella. A 9 mm insert trial was placed and the knee was brought into full extension. Tourniquet was turned down and the knee was copiously irrigated with sterile saline. Electrocautery was used to obtain meticulous hemostasis. Once the cement had fully cured, the insert trial was removed. Any excess cement was removed from around the hardware and capsule. Final insert chosen was a 9 mm posterior stabilized Thompson II articular insert size 5-6. Stability of the insert was checked and noted to be stable. The extensor mechanism was closed using number 1 vicryls. The rest of the incision was closed in a layered fashion using 0 and 2-0 vicryls. The skin was closed using 3-0 nylon suture. Sterile xeroform, 4x4s and webril were used to cover the incision. Jose wrap and cold pack were used to cover the dressings. The patients anesthesia was reversed without difficulty. He was taken to the PACU in stable condition. Intended weight-bearing will be as tolerated.
[2018-07-13] MEDS: Magnesium Hydroxide LIQ* 30 ML UDC PO SCH (19:56)
[2018-07-13] MEDS: Docusate CAP* 100 MG PO SCH (19:56)
[2018-07-14] MEDS: traMADol TAB* 50 MG PO PRN ×2 (01:45→14:00)
[2018-07-14 05:32] LABS: Hematocrit 38 % (36-46); Hemoglobin 12.6 g/dL (14.0-18.0); Mean Platelet Volume 7.9 fL (7.4-10.4); Platelet Count 197 10^3/uL (150-450)
[2018-07-14 05:48] LABS: BUN/Creatinine Ratio 11.1 (8-20); Calcium 8.4 mg/dL (8.6-10.3); EGFR African American 132.6 (>60); EGFR Non-African American 109.6 (>60); Potassium 4.2 mmol/L (3.5-5.0)
[2018-07-14] MEDS: oxyCODONE/Acetamin 5/325 MG* TAB PO PRN (06:23)
[2018-07-14] MEDS: Acetaminophen TAB* 325 MG PO SCH ×3 (06:29→23:18)
[2018-07-14] MEDS: ceFAZolin 1 GM ADVAN(*) 1 GM in NS 0.9% 50 ML* 50 ML IVPB SCH (09:15)
[2018-07-14] MEDS: Magnesium Hydroxide LIQ* 30 ML UDC PO SCH ×2 (09:16→21:20)
[2018-07-14] MEDS: Docusate CAP* 100 MG PO SCH ×2 (09:17→21:19)
[2018-07-14] MEDS: Apixaban* 2.5 MG TAB PO SCH ×2 (09:17→21:19)
[2018-07-14] MEDS: Nicotine PATCH 21 MG/24 HR* PATCH TRANSDERM SCH (09:19)
[2018-07-14] MEDS: Lactated Ringers 1000 ML Bag* 1,000 ML IV SCH (09:24)
--- NOTE | 2018-07-14 12:22 | PN ---
Progress Note - Progress Note Date of Service: 07/14/18 SOAP: Subjective: []Patient seen and examined at bedside. He feels well without CP, SOB, dizziness or nausea. He is very sleepy per nursing, for narcotics he has had only percocet this morning though he did have oxycodone, tramadol, IV mophine last night. Objective: []General: Well appearing, NAD, a&ox3, carries on appropriate conversation without falling asleep RLE: Right knee dressing CDI, thigh is soft, DF/PF intact, sensation intact to light touch distally, DP2+ Calves supple and nontender without erythema, edema or palpable cords Assessment: []POD [address] Rodgers Plan: []WBAT PT/OT eliquis 2.5 mg po BID x 30 days Continuous pulseox ordered due to low O2 sat on room air, sleepiness. Frequent monitoring and hold narcotics discussed with nursing Vital Signs Temp 97.2 F 07/14/18 11:20 Pulse 98 07/14/18 11:20 Resp 20 07/14/18 11:42 BP 126/58 07/14/18 11:30 Pulse Ox 96 07/14/18 11:42 Intake & Output 07/13/18 07/14/18 07/14/18 18:59 06:59 18:59 Intake Total 1999 1889 1023 Output Total 200 1350 Balance 5422 828 9019 Intake: IV Fluids 1999 979 1023 ABX - CEFAZOLIN 55 81 LR 1999 924 942 Oral 910 Output: Merchant 200 1350 Laboratory Last Values Hgb 12.6 g/dL (14.0-18.0) L 07/14/18 05:10 Hct 38 % (36-46) 07/14/18 05:10 Plt Count 197 10^3/uL (150-450) 07/14/18 05:10 MPV 7.9 fL (7.4-10.4) 07/14/18 05:10 Sodium 133 mmol/L (135-145) L 07/14/18 05:10 Potassium 4.2 mmol/L (3.5-5.0) 07/14/18 05:10 Chloride 100 mmol/L (101-111) L 07/14/18 05:10 Carbon Dioxide 29 mmol/L (22-32) 07/14/18 05:10 Anion Gap 4 mmol/L (2-11) 07/14/18 05:10 BUN 8 mg/dL (6-24) 07/14/18 05:10 Creatinine 0.72 mg/dL (0.67-1.17) 07/14/18 05:10 Est GFR ( Amer) 132.6 (>60) 07/14/18 05:10 Est GFR (Non-Af Amer) 109.6 (>60) 07/14/18 05:10 BUN/Creatinine Ratio 11.1 (8-20) 07/14/18 05:10 Glucose 151 mg/dL (70-100) H 07/14/18 05:10 Calcium 8.4 mg/dL (8.6-10.3) L 07/14/18 05:10
[2018-07-14] MEDS ORDERED: oxyCODONE TAB* 5 MG TAB PO PRN (12:29)
[2018-07-14] MEDS: Nicotine Patch Removal NOTE PATCH OFF SCH (21:20)
[2018-07-15 05:42] LABS: Hematocrit 40 % (36-46); Hemoglobin 12.5 g/dL (14.0-18.0)
[2018-07-15] MEDS: Acetaminophen TAB* 325 MG PO SCH ×3 (07:27→22:30)
--- NOTE | 2018-07-15 07:44 | CONS ---
CC: ROSANNE Lopez HOSPITALIST CONSULT NOTE: DATE OF CONSULT: 07/15/2018 DATE OF ADMISSION: 07/13/2018 CONSULTING PHYSICIAN: Aleksandra Rodgers MD. PRIMARY CARE PHYSICIAN: ROSANNE Lopez. REASON FOR CONSULT: History of sleep apnea, but not ordered for CPAP at night. PROCEDURE: Right total knee arthroplasty on 07/13/18. HISTORY OF PRESENT ILLNESS: Mr. Harley is a 63-year-old man with a history of obesity, sleep apnea not on home CPAP, and active tobacco use who was admitted to [facility] for right total knee arthroplasty given severe right knee pain due to osteoarthritis, failing conservative measures. He underwent this procedure on 07/13/18 without complications. His postop course has been notable for nocturnal hypoxia. On interview, the patient does report history of sleep apnea, although he is unclear why he is not on CPAP at home. He has a history of snoring with daytime fatigue. He denies fevers, chills, night sweats , chest pain, cough, shortness of breath. Otherwise, 10-point review of systems is negative. PAST MEDICAL HISTORY: 1. Sleep apnea. 2. Obesity. 3. Active tobacco use. PAST SURGICAL HISTORY: 1. Bilateral carpal tunnel release. 2. Radical tonsillectomy. 3. Right wrist ganglion cyst excision. MEDICATIONS: Denies taking medications at home. ALLERGIES: Denies allergies. SOCIAL HISTORY: Lives with his . 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 He smokes approximately 1 pack of cigarettes per day since young adulthood with occasional marijuana. He drinks 1 to 2 beers per day. Denies other drugs. FAMILY HISTORY: Noncontributory. PHYSICAL EXAM: afeb, HR 70s, BP 120s/40s, RR 12, SaO2 88% on RA Gen: Sleeping on approach to bed with loud snoring, noted to have plethoric face. Neck: Supple, thick. Unable to appreciate JVP due to habitus. Lungs: Clear to auscultation bilaterally. Heart: Regular rate and rhythm. No murmurs, gallops, or rubs. Abdomen: Protuberant, soft, nontender, and nondistended. Extremities: Warm, well perfused. No edema. Right knee in bandage. LABORATORY DATA: Labs reviewed and significant for hemoglobin 12.5, decreased postop, prior 15.5. Sodium 133. ASSESSMENT AND PLAN: This is a 63-year-old man with a history of obesity, sleep apnea, active tobacco, and severe right knee osteoarthritis who is presenting for right knee total arthroplasty, now 2 days postop. He tolerated the procedure well, but he has been noted to have nighttime snoring and hypoxia , likely from history of known obstructive sleep apnea. I have ordered CPAP for this patient to use nightly while he is in the hospital. We will continue to monitor his oxygen saturations closely. Thank you for this interesting consult. We will continue to follow with you. [id number]/[facility] #: [id number] MIGEL
[2018-07-15] MEDS: Nicotine PATCH 21 MG/24 HR* PATCH TRANSDERM SCH (08:28)
[2018-07-15] MEDS: Magnesium Hydroxide LIQ* 30 ML UDC PO SCH ×2 (08:29→21:47)
[2018-07-15] MEDS: Apixaban* 2.5 MG TAB PO SCH ×2 (08:29→21:50)
[2018-07-15] MEDS: Docusate CAP* 100 MG PO SCH ×2 (08:29→21:47)
[2018-07-15] MEDS: traMADol TAB* 50 MG PO PRN (13:00)
--- NOTE | 2018-07-15 13:38 | PN ---
Progress Note - Progress Note Date of Service: 07/15/18 SOAP: Subjective: []Pt seen OOB in chair. He feels he is breathing at baseline, his notes that he snores loudly at night. Denies feeling of CP, SOB, dizziness or nausea. He has not met his goals with PT. Objective: []General: NAD, sitting comfortably in chair. A&O x 3 RLE: Right knee dressing CDI, thigh is soft, DF/PF intact, sensation intact to light touch distally, DP2+ Calves supple and nontender without erythema, edema or palpable cords Assessment: []POD [address] Rodgers Plan: []WBAT PT/OT eliquis 2.5 mg po BID x 30 days Discussed with medicine who will see him now, Walk test w nursing to determine need for home O2 Outpt sleep study needs to resume use of CPAP Vital Signs Temp 98.7 F 07/15/18 11:02 Pulse 87 07/15/18 11:02 Resp 20 07/15/18 13:00 BP 126/59 07/15/18 11:02 Pulse Ox 88 07/15/18 12:01 Intake & Output 07/14/18 07/15/18 07/15/18 18:59 06:59 18:59 Intake Total 1675 460 320 Output Total 200 825 200 Balance 1475 -365 120 Intake: IV Fluids 1435 ABX - CEFAZOLIN 107 LR 1328 Oral 240 460 320 Output: Urine 200 825 200 Other: Estimated Void Large Large # Bowel Movements 0 1 Estimated Stool Amount Large # Voids 1 1 Laboratory Last Values Hgb 12.5 g/dL (14.0-18.0) L 07/15/18 05:29 Hct 40 % (36-46) 07/15/18 05:29 Plt Count 197 10^3/uL (150-450) 07/14/18 05:10 MPV 7.9 fL (7.4-10.4) 07/14/18 05:10 Sodium 131 mmol/L (135-145) L 07/15/18 05:29 Potassium 4.2 mmol/L (3.5-5.0) 07/14/18 05:10 Chloride 100 mmol/L (101-111) L 07/14/18 05:10 Carbon Dioxide 29 mmol/L (22-32) 07/14/18 05:10 Anion Gap 4 mmol/L (2-11) 07/14/18 05:10 BUN 8 mg/dL (6-24) 07/14/18 05:10 Creatinine 0.72 mg/dL (0.67-1.17) 07/14/18 05:10 Est GFR ( Amer) 132.6 (>60) 07/14/18 05:10 Est GFR (Non-Af Amer) 109.6 (>60) 07/14/18 05:10 BUN/Creatinine Ratio 11.1 (8-20) 07/14/18 05:10 Glucose 151 mg/dL (70-100) H 07/14/18 05:10 Calcium 8.4 mg/dL (8.6-10.3) L 07/14/18 05:10
--- NOTE | 2018-07-15 16:58 | PN ---
Subjective Date of Service: 07/15/18 Interval History: Mr. Harley is feeling ok today. He offers no complaints. He reports that he has always been a "weird breather" and reports being a mouth breather. He previously had his tonsils and adenoids removed and was told he did not need a CPAP afterward. He tried to use a CPAP prior to that but did not tolerate it. He is not willing to undergo another sleep study in the near future. Does not feel SOB. No CP. Pain is not well managed. His reports the narcotics are making him confused. Was up ambulating in the halls with PT and nursing. Sat was 88% on RA while ambulating. Nursing expressed concern about irregular HR after this episode. Family History: Unchanged from Admission Social History: Unchanged from Admission Past Medical History: Unchanged from Admission Objective Active Medications: Acetaminophen (Tylenol Tab*) 975 mg PO Q8H BRANDY Apixaban (Eliquis*) 2.5 mg PO BID BRANDY Bisacodyl (Dulcolax Supp*) 10 mg TX DAILY PRN constipation Cyclobenzaprine HCl (Flexeril Tab*) 10 mg PO TID PRN SPASMS Diphenhydramine HCl (Benadryl Iv*) 12.5 mg IV Q6H PRN PRURITIS Docusate Sodium (Colace Cap*) 100 mg PO BID BRANDY Lactated Ringer's (Lactated Ringers 1000 Ml Bag*) 1,000 mls @ 100 mls/hr IV PER RATE BRANDY Lactulose (Lactulose*) 30 ml PO Q6H PRN constipation Magnesium Hydroxide (Milk Of Magnesia Liq*) 30 ml PO BID BRANDY Magnesium Hydroxide (Milk Of Magnesia Liq*) 30 ml PO Q6H PRN constipation Morphine Sulfate (Morphine 4 Mg/Ml Vial (1 Ml)) 2 mg IV Q2H PRN PAIN Nicotine (Nicotine Patch 21 Mg/24 Hr*) 1 patch TRANSDERM DAILY BRANDY Ondansetron HCl (Zofran Inj*) 4 mg IV Q6H PRN nausea Ondansetron HCl (Zofran Tab*) 4 mg PO Q6H PRN NAUSEA Oxycodone HCl (Roxycodone Tab*) 5 mg PO Q4H PRN SEVERE PAIN Oxycodone/Acetaminophen (Percocet 5/325 Tab*) 1 tab PO Q4H PRN PAIN Polyethylene Glycol/Electrolytes (Miralax*) 17 gm PO DAILY PRN Constipation Tramadol HCl (Ultram*) 50 mg PO Q6H PRN PAIN Vital Signs - 8 hr 07/15/18 07/15/18 07/15/18 09:00 10:00 10:12 Temperature Pulse Rate 83 Respiratory Rate Blood Pressure (mmHg) O2 Sat by Pulse 94 94 Oximetry 07/15/18 07/15/18 07/15/18 10:52 11:02 11:33 Temperature 98.7 F Pulse Rate 87 Respiratory 20 20 Rate Blood Pressure 126/59 (mmHg) O2 Sat by Pulse 94 94 96 Oximetry 07/15/18 07/15/18 07/15/18 12:01 13:00 14:17 Temperature Pulse Rate 92 Respiratory 20 Rate Blood Pressure 141/55 (mmHg) O2 Sat by Pulse 88 90 Oximetry 07/15/18 07/15/18 07/15/18 14:21 14:33 14:42 Temperature Pulse Rate 39 92 91 Respiratory Rate Blood Pressure (mmHg) O2 Sat by Pulse 87 89 92 Oximetry 07/15/18 07/15/18 07/15/18 15:07 15:08 15:19 Temperature 98.7 F Pulse Rate 84 86 Respiratory 20 16 Rate Blood Pressure 119/52 (mmHg) O2 Sat by Pulse 95 95 95 Oximetry 07/15/18 16:00 Temperature Pulse Rate Respiratory Rate Blood Pressure (mmHg) O2 Sat by Pulse 92 Oximetry Oxygen Devices in Use Now: None Appearance: Middle-aged male sitting in chair in NAD Eyes: No Scleral Icterus Ears/Nose/Mouth/Throat: Mucous Membranes Moist Neck: NL Appearance and Movements; NL JVP, Trachea Midline Respiratory: Symmetrical Chest Expansion and Respiratory Effort, Clear to Auscultation Cardiovascular: NL Sounds; No Murmurs; No JVD, RRR Abdominal: NL Sounds; No Tenderness; No Distention Extremities: No Edema Neurological: Alert and Oriented x 3 Lines/Tubes/Other Access: Clean, Dry and Intact Peripheral IV Nutrition: Taking PO's Result Diagrams: 07/15/18 05:29 07/15/18 05:29 Assess/Plan/Problems-Billing Assessment: Mr. Harley is a 63 yo M with PMH of KEIKO and obesity; who presented for an elective R TKA and has been recovering well until he was noted to be hypoxic during the night on POD #1. - Patient Problems (1) Status post right knee replacement Code(s): Z96.651 - PRESENCE OF RIGHT ARTIFICIAL KNEE JOINT Comment: - POD #2 - Management per Ortho - PT/OT, pain management, bowel regimen (2) Hypoxia Code(s): R09.02 - HYPOXEMIA Comment: - Hypoxic down into the 70s overnight, but does have history of KEIKO - Multifactorial, secondary to KEIKO, narcotics, possibly smoking history - Dropped to 88% on RA with ambulation - Will do another walk test prior to d/c tomorrow (3) KEIKO (obstructive sleep apnea) Code(s): G47.33 - OBSTRUCTIVE SLEEP APNEA (ADULT) (PEDIATRIC) Comment: - S/p tonsillectomy and adenoidectomy, not on home CPAP - Recommend repeat sleep study as an outpatient, but he is refusing at this time - CPAP at HS while in the hospital (4) DVT prophylaxis Comment: - Eliquis per Ortho (5) Full code status Code(s): Z78.9 - OTHER SPECIFIED HEALTH STATUS Comment: Status and Disposition: Disposition per Ortho. Will do a walk test tomorrow to see if he qualifies for home oxygen, but he did not based on walk test today. Thank you for this consultation. We will continue to follow. Attending: Kimberley Young
[2018-07-15] MEDS: Nicotine Patch Removal NOTE PATCH OFF SCH (21:56)
[2018-07-16 07:37] LABS: Hematocrit 34 % (36-46); Mean Platelet Volume 7.9 fL (7.4-10.4); Platelet Count 188 10^3/uL (150-450)
[2018-07-16] MEDS: Acetaminophen TAB* 325 MG PO SCH ×2 (09:06→15:16)
[2018-07-16] MEDS: Magnesium Hydroxide LIQ* 30 ML UDC PO SCH (09:06)
[2018-07-16] MEDS: Nicotine PATCH 21 MG/24 HR* PATCH TRANSDERM SCH (09:06)
[2018-07-16] MEDS: Apixaban* 2.5 MG TAB PO SCH (09:07)
[2018-07-16] MEDS: Docusate CAP* 100 MG PO SCH (09:07)
--- NOTE | 2018-07-16 14:10 | DS ---
Orthopedic Discharge Summary - Discharge Summary Date of Admission:07/13/18 Date of Discharge: 07/16/18 Date of Surgery: 07/13/18 Attending Orthopedic Provider: Dr. Rodgers Pre-operative Diagnosis: DJD right knee Operative Procedure: Right total knee arthroplasty Condition of Patient: stable History: JOSE ALBERTO PRATT is a 63 year old M with years of increasingly severe right knee pain. Patient has failed conservative management and has elected to undergo a right total knee replacement. Hospital Course: JOSE ALBERTO was admitted to [facility] on 07/13/18. Patient underwent a right total knee without complication followed by a brief recovery in PACU and transfer to the Short Stay Surgical Unit in stable condition. Our hospitalist service, physical therapy and occupational therapy also participated in this patients care. Post-op day 1: patient was alert and in no acute distress. Dressing was clean, dry and intact. Operative extremity dorsiflexion and plantarflexion intact, sensation intact to light touch distally , DP2+. Post-op day two: dressing was changed, incision was clean, dry and intact. He was having noted low O2 saturation on room air and work up was ordered and consult placed to the hospitalist service. He has had some issues in the past but has declined using a CPAP at night. He has improved, today 96% O2 sats on room air while walking to the therapy room. He denies shortness of breath, chest pain, or palpitations. He has agreed to follow up with home sleep test and consider CPAP. Patient was deemed to be medically and orthopedically stable for discharge home. Physical therapy goals were met. Home Medications Medication Instructions Recorded Confirmed Type Acetaminophen TAB* [Tylenol TAB*] 975 mg PO Q8H tab 07/16/18 Rx Apixaban* [Eliquis*] 2.5 mg PO BID #60 tab 07/16/18 Rx Docusate CAP* [Colace Cap*] 100 mg PO BID cap 07/16/18 Rx oxyCODONE/Acetamin 5/325 MG* 1 tab PO Q4H PRN #42 tab MDD 6 07/16/18 Rx [Percocet 5/325 TAB*] Discharge home today WBAT RLE Outpatient PT Eliquis for DVT prophylaxis 1 mo post op Percocet 5/325 for pain as above Home sleep study as recommended Follow up in 10-14 days as scheduled
[2018-07-16 14:12] VITALS: BP 124/61
--- NOTE | 2018-07-16 16:05 | PN ---
Subjective Date of Service: 07/16/18 Interval History: Mr. Harley is feeling better this morning. He denies any SOB overnight. No cough. He reports he did use the hospital CPAP. Not interested in undergoing an outpatient sleep study. Pain is well managed. No concerns from nursing. Family History: Unchanged from Admission Social History: Unchanged from Admission Past Medical History: Unchanged from Admission Objective Vital Signs - 8 hr 07/16/18 07/16/18 07/16/18 10:00 10:52 10:53 Temperature Pulse Rate 103 102 Respiratory Rate Blood Pressure (mmHg) O2 Sat by Pulse 90 88 87 Oximetry 07/16/18 07/16/18 11:18 12:00 Temperature 98.2 F Pulse Rate 90 Respiratory 16 16 Rate Blood Pressure 124/61 (mmHg) O2 Sat by Pulse 95 95 Oximetry Oxygen Devices in Use Now: None Appearance: Middle-aged male laying in bed in NAD Eyes: No Scleral Icterus Ears/Nose/Mouth/Throat: Mucous Membranes Moist Neck: NL Appearance and Movements; NL JVP, Trachea Midline Respiratory: Symmetrical Chest Expansion and Respiratory Effort, Clear to Auscultation Cardiovascular: NL Sounds; No Murmurs; No JVD, RRR Neurological: Alert and Oriented x 3 Lines/Tubes/Other Access: Clean, Dry and Intact Peripheral IV Nutrition: Taking PO's Result Diagrams: 07/16/18 07:32 07/15/18 05:29 Assess/Plan/Problems-Billing Assessment: Mr. Harley is a 63 yo M with PMH of KEIKO and obesity; who presented for an elective R TKA and has been recovering well until he was noted to be hypoxic during the night on POD #1. - Patient Problems (1) Status post right knee replacement Code(s): Z96.651 - PRESENCE OF RIGHT ARTIFICIAL KNEE JOINT Comment: - POD #3 - Management per Ortho - PT/OT, pain management, bowel regimen (2) Hypoxia Code(s): R09.02 - HYPOXEMIA Comment: - Hypoxic down into the 70s overnight, but does have history of KEIKO - Multifactorial, secondary to KEIKO, narcotics, possibly smoking history - Dropped to 88% on RA with ambulation - Will do another walk test prior to d/c today (3) KEIKO (obstructive sleep apnea) Code(s): G47.33 - OBSTRUCTIVE SLEEP APNEA (ADULT) (PEDIATRIC) Comment: - S/p tonsillectomy and adenoidectomy, not on home CPAP - Recommend repeat sleep study as an outpatient, but he is refusing at this time - CPAP at HS while in the hospital (4) DVT prophylaxis Comment: - Eliquis per Ortho (5) Full code status Code(s): Z78.9 - OTHER SPECIFIED HEALTH STATUS Comment: Status and Disposition: Disposition per Ortho. Would highly recommend an outpatient sleep study to reassess need for CPAP, but he is stable for d/c from a medical standpoint as long as he passes his walk test. Thank you for this consultation. We will continue to follow. Attending: Kimberley Young
== END 2018-07-16 14:55 | disposition home or self-care (01) | DRG 302 ==
LOC: AA 05:27 → SSU 14:03
PROVIDERS: ADMIT Orthopaedic Surgery Adult Reconstructive Orthopaedic Surgery; ATTEND Orthopaedic Surgery Adult Reconstructive Orthopaedic Surgery
PROC: 0SRC0J9 Replacement of Right Knee Joint with Synthetic Substitute, Cemented, Open Approach (ICD-10-PCS; principal; 2018-07-13 08:00)
DX: M17.11 Unilateral primary osteoarthritis, right knee (principal); Z68.41 Body mass index [BMI] 40.0-44.9, adult; F17.210 Nicotine dependence, cigarettes, uncomplicated; M25.461 Effusion, right knee; E78.2 Mixed hyperlipidemia; M25.761 Osteophyte, right knee; G47.33 Obstructive sleep apnea (adult) (pediatric); E66.01 Morbid (severe) obesity due to excess calories; Z80.8 Family history of malignant neoplasm of other organs or systems; Z81.8 Family history of other mental and behavioral disorders; Z72.89 Other problems related to lifestyle; R09.02 Hypoxemia
CPT/HCPCS: 36415; 71046; 80048; 84300; 85014; 85018; 85049; 88305; 88311; 94660; A9270-GY; C1776; J0360; J0690; J1170; J2250; J2270; J2704; J2795; J3010